=== PATIENT | female | born 1975 | race Caucasian/White ===

== ENCOUNTER 2017-03-16 03:26 | Emergency (ER) | payer OTHER ==
[2017-03-16] MEDS ORDERED: ONDANSETRON 4 MG/2 ML VIAL IVP STA (03:53)
[2017-03-16] MEDS ORDERED: PANTOPRAZOLE 40 MG/10 ML VIAL IVP STA (03:53)
[2017-03-16] MEDS ORDERED: SODIUM CHLORIDE 0.9% 1,000 ML IV STA ×2 (03:53)
[2017-03-16] MEDS ORDERED: SODIUM CHLORIDE 0.9% 500 ML IV STA (03:53)
[2017-03-16] MEDS ORDERED: MORPHINE SULFATE 4 MG/ML SYRINGE IVP STA (03:54)
[2017-03-16 04:13] LABS: Basophils % (A) 0 %; CH 31.9; CHCM 33.5; Eosinophils # (A) 0.2 k/uL (0-0.7); Eosinophils % (A) 2 %; HCT 42.5 % (34.0-46.0); HDW 2.23; HGB 14.6 gm/dL (11.4-16.0); Luc # (Auto) 0.25; Luc % (Auto) 2; Lymphocytes # (A) 1.8 k/uL (1.0-4.8); Lymphocytes % (A) 14 %; MCHC 34.4 g/dL (31.0-37.0); MCV 95.7 fL (80.0-100.0); Monocytes # (A) 0.8 k/uL (0-1.0); Monocytes % (A) 7 %; Neutrophils # (A) 9.6 k/uL (1.3-7.7); Neutrophils % (A) 75 %; RBC 4.44 m/uL (3.80-5.40); RDW 13.7 % (11.5-15.5); WBC 12.7 k/uL (3.8-10.6); WBC (Perox) 11.83
[2017-03-16 04:21] LABS: INR 1.1 (<1.1); Partial Thromboplastin Time 25.5 sec (22.0-30.0); Prothrombin Time 10.7 sec (9.0-12.0)
[2017-03-16 04:25] LABS: ALT 36 U/L (9-52); AST 17 U/L (14-36); Alkaline Phosphatase 86 U/L (38-126); Amylase 61 U/L (30-110); Anion Gap 14 mmol/L; Blood Urea Nitrogen 9 mg/dL (7-17); Calcium 10.1 mg/dL (8.4-10.2); Carbon Dioxide 27 mmol/L (22-30); Chloride 104 mmol/L (98-107); Glucose 132 mg/dL (74-99); Magnesium 1.9 mg/dL (1.6-2.3); Non-African American GFR(MDRD) >60 (>60 ml/min/1.73 sqM); Potassium 3.6 mmol/L (3.5-5.1); Sodium 145 mmol/L (137-145); Total Bilirubin 0.3 mg/dL (0.2-1.3); Total Protein 7.7 g/dL (6.3-8.2)
[2017-03-16] MEDS ORDERED: RX INFO: IV CONTRAST WAS GIVEN 1 EACH MISC MISCELLANE PRN (04:34)
[2017-03-16] MEDS ORDERED: LORazepam 2 MG/ML SYRINGE IV STA (04:34)
--- NOTE | 2017-03-16 04:35 | ED ---
General Adult HPI - General Source: patient, RN notes reviewed, old records reviewed Mode of arrival: ambulatory Limitations: no limitations <Antonio Bain - Last Filed: 03/16/17 06:47> <Blake Littlejohn - Last Filed: 03/16/17 07:43> - General Chief complaint: Nausea/Vomiting/Diarrhea Stated complaint: VOMITING BLOOD Time Seen by Provider: 03/16/17 03:53 - History of Present Illness Initial comments: This is a 41-year-old female here for evaluation of nausea and vomiting. Severe nausea vomiting signed today. Patient states she's never prior symptoms before. Denies history of pancreatitis. No surgeries. Patient does have history of L Kitty and ulcers. She states she no longer drinks, denies drugs or alcohol, no fevers. No diarrhea. Patient is [facility] to [facility] increased anxiety. She states that after multiple episodes of vomiting she denies blood in her vomit as well. She feels like she has pain in her throat, she does have recent history of throat surgery secondary to mass ( Antonio Bain) - Related Data Home Medications Medication Instructions Recorded Confirmed Famotidine 40 mg PO DAILY 07/20/14 03/16/17 Hydrocodone/Acetaminophen 1 tab PO BID 07/20/14 03/16/17 [Hydrocodone/Acetaminophen 10-325] Omeprazole 40 mg PO DAILY 07/20/14 03/16/17 Diazepam [Valium] 5 mg PO BID 03/16/17 03/16/17 QUEtiapine [SEROquel] 200 mg PO HS 03/16/17 03/16/17 Sucralfate [Carafate] 5 ml PO Q6H PRN 03/16/17 03/16/17 Previous Rx's Medication Instructions Recorded Ondansetron Odt [Zofran Odt] 4 mg PO Q8HR PRN #7 tab 03/16/17 Allergies Allergy/AdvReac Type Severity Reaction Status Date / Time No Known Allergies Allergy Verified 03/16/17 07:35 Review of Systems ROS Other: All systems not noted in ROS Statement are negative. <Antonio Bain - Last Filed: 03/16/17 06:47> ROS Other: All systems not noted in ROS Statement are negative. <Blake Littlejohn - Last Filed: 03/16/17 07:43> ROS Statement: Those systems with pertinent positive or pertinent negative responses have been documented in the HPI. Past Medical History Past Medical History: Unable to Obtain Additional Past Medical History / Comment(s): "precancerous polyps" removed from esophagus and stomach History of Any Multi-Drug Resistant Organisms: None Reported Past Surgical History: Orthopedic Surgery, Tonsillectomy, Tubal Ligation Additional Past Surgical History / Comment(s): "precancerous polyps" removed from esophagus and stomach, ruptured disk, Past Psychological History: Anxiety Smoking Status: Current every day smoker Past Alcohol Use History: Occasional Past Drug Use History: Marijuana <Antonio Bain - Last Filed: 03/16/17 06:47> General Exam Limitations: no limitations General appearance: alert, in no apparent distress, anxious Head exam: Present: atraumatic, normocephalic, normal inspection Eye exam: Present: normal appearance, PERRL, EOMI. Absent: scleral icterus, conjunctival injection, periorbital swelling ENT exam: Present: normal exam, mucous membranes moist Neck exam: Present: normal inspection. Absent: tenderness, meningismus, lymphadenopathy Respiratory exam: Present: normal lung sounds bilaterally. Absent: respiratory distress, wheezes, rales, rhonchi, stridor Cardiovascular Exam: Present: regular rate, normal rhythm, normal heart sounds. Absent: systolic murmur, diastolic murmur, rubs, gallop, clicks GI/Abdominal exam: Present: soft, normal bowel sounds. Absent: distended, tenderness, guarding, rebound, rigid Extremities exam: Present: normal inspection, full ROM, normal capillary refill. Absent: tenderness, pedal edema, joint swelling, calf tenderness Back exam: Present: normal inspection Neurological exam: Present: alert, oriented X3, CN II-XII intact Psychiatric exam: Present: normal affect, normal mood Skin exam: Present: warm, dry, intact, normal color. Absent: rash <Antonio Bain - Last Filed: 03/16/17 06:47> Course <Antonio Bain - Last Filed: 03/16/17 06:47> <Blake Littlejohn - Last Filed: 03/16/17 07:43> Vital Signs 03/16/17 03/16/17 03/16/17 03:29 05:46 06:03 Temperature 98.2 F 97.4 F L Pulse Rate 97 73 82 Respiratory 16 18 16 Rate Blood Pressure 176/106 122/71 154/87 O2 Sat by Pulse 97 94 L 99 Oximetry 03/16/17 07:18 Temperature Pulse Rate 79 Respiratory 18 Rate Blood Pressure 129/70 O2 Sat by Pulse 94 L Oximetry - Reevaluation(s) Reevaluation #1: 03/16/17 07:41 The patient was endorsed to me at our shift change pending CAT scan results. CT of the soft tissue neck showed prominence of the parotid glands. She has no symptoms at this level. Additionally the CT abdomen pelvis shows evidence of a right adnexal cyst no other findings I did discuss this with the patient and her family. Patient was complaining of a 4/10 migraine headache and some nausea she did get some more medication she'll be discharged and follow-up with her doctor and return when necessary (Blake Littlejohn) Medical Decision Making - Lab Data Result diagrams: 03/16/17 03:50 03/16/17 03:50 - Radiology Data Radiology results: report reviewed (CT soft tissue neck, CT head and pelvis negative for acute disease), image reviewed <Antonio Bain - Last Filed: 03/16/17 06:47> - Lab Data Result diagrams: 03/16/17 03:50 03/16/17 03:50 <Blake Littlejohn - Last Filed: 03/16/17 07:43> - Medical Decision Making 41 female in the ER for evaluation of anxiety nausea vomiting with blood. No vomiting while in emergency room, symptoms resolved. Anxiety improved CAT scans are normal patient can be discharged home (Antonio Bain) - Lab Data Lab Results 03/16/17 03/16/17 03/16/17 Range/Units 03:50 03:50 03:50 WBC 12.7 H (3.8-10.6) k/uL RBC 4.44 (3.80-5.40) m/uL Hgb 14.6 (11.4-16.0) gm/dL Hct 42.5 (34.0-46.0) % MCV 95.7 (80.0-100.0) fL MCH 33.0 (25.0-35.0) pg MCHC 34.4 (31.0-37.0) g/dL RDW 13.7 (11.5-15.5) % Plt Count 359 (150-450) k/uL Neutrophils % 75 % Lymphocytes % 14 % Monocytes % 7 % Eosinophils % 2 % Basophils % 0 % Neutrophils # 9.6 H (1.3-7.7) k/uL Lymphocytes # 1.8 (1.0-4.8) k/uL Monocytes # 0.8 (0-1.0) k/uL Eosinophils # 0.2 (0-0.7) k/uL Basophils # 0.0 (0-0.2) k/uL PT (9.0-12.0) sec INR (<1.1) APTT (22.0-30.0) sec Sodium 145 (137-145) mmol/L Potassium 3.6 (3.5-5.1) mmol/L Chloride 104 (98-107) mmol/L Carbon Dioxide 27 (22-30) mmol/L Anion Gap 14 mmol/L BUN 9 (7-17) mg/dL Creatinine 0.60 (0.52-1.04) mg/dL Est GFR (MDRD) Af Amer >60 (>60 ml/min/1.73 sqM) Est GFR (MDRD) Non-Af >60 (>60 ml/min/1.73 sqM) Glucose 132 H (74-99) mg/dL Calcium 10.1 (8.4-10.2) mg/dL Magnesium 1.9 (1.6-2.3) mg/dL Total Bilirubin 0.3 (0.2-1.3) mg/dL AST 17 (14-36) U/L ALT 36 (9-52) U/L Alkaline Phosphatase 86 (38-126) U/L Total Creatine Kinase 51 (30-135) U/L CK-MB (CK-2) 0.4 (0.0-2.4) ng/mL CK-MB (CK-2) Rel Index 0.8 Troponin I <0.012 (0.000-0.034) ng/mL Total Protein 7.7 (6.3-8.2) g/dL Albumin 4.8 (3.5-5.0) g/dL Amylase 61 (30-110) U/L Lipase 43 (23-300) U/L 03/16/17 Range/Units 03:50 WBC (3.8-10.6) k/uL RBC (3.80-5.40) m/uL Hgb (11.4-16.0) gm/dL Hct (34.0-46.0) % MCV (80.0-100.0) fL MCH (25.0-35.0) pg MCHC (31.0-37.0) g/dL RDW (11.5-15.5) % Plt Count (150-450) k/uL Neutrophils % % Lymphocytes % % Monocytes % % Eosinophils % % Basophils % % Neutrophils # (1.3-7.7) k/uL Lymphocytes # (1.0-4.8) k/uL Monocytes # (0-1.0) k/uL Eosinophils # (0-0.7) k/uL Basophils # (0-0.2) k/uL PT 10.7 (9.0-12.0) sec INR 1.1 (<1.1) APTT 25.5 (22.0-30.0) sec Sodium (137-145) mmol/L Potassium (3.5-5.1) mmol/L Chloride (98-107) mmol/L Carbon Dioxide (22-30) mmol/L Anion Gap mmol/L BUN (7-17) mg/dL Creatinine (0.52-1.04) mg/dL Est GFR (MDRD) Af Amer (>60 ml/min/1.73 sqM) Est GFR (MDRD) Non-Af (>60 ml/min/1.73 sqM) Glucose (74-99) mg/dL Calcium (8.4-10.2) mg/dL Magnesium (1.6-2.3) mg/dL Total Bilirubin (0.2-1.3) mg/dL AST (14-36) U/L ALT (9-52) U/L Alkaline Phosphatase (38-126) U/L Total Creatine Kinase (30-135) U/L CK-MB (CK-2) (0.0-2.4) ng/mL CK-MB (CK-2) Rel Index Troponin I (0.000-0.034) ng/mL Total Protein (6.3-8.2) g/dL Albumin (3.5-5.0) g/dL Amylase (30-110) U/L Lipase (23-300) U/L Disposition <Antonio Bain - Last Filed: 03/16/17 06:47> <Blake Littlejohn - Last Filed: 03/16/17 07:43> Clinical Impression: Nausea and vomiting, Zoë-Valdez tear Disposition: HOME SELF-CARE Condition: Good Instructions: Acute Nausea and Vomiting (ED) Prescriptions: Ondansetron Odt [Zofran Odt] 4 mg PO Q8HR PRN #7 tab PRN Reason: Nausea Referrals: Drik Richey MD [Primary Care Provider] - 1-2 days
[2017-03-16 04:42] LABS: Creatine Kinase 51 U/L (30-135)
[2017-03-16 04:55] LABS: Creatine Kinase MB 0.4 ng/mL (0.0-2.4); Troponin I <0.012 ng/mL (0.000-0.034)
--- NOTE | 2017-03-16 07:12 | CT ---
EXAM: CT Neck With Intravenous Contrast CLINICAL HISTORY: Reason: Pain TECHNIQUE: Axial computed tomography images of the neck with intravenous contrast. CTDI is 23.69 mGy and DLP is 785.05 mGy-cm. This CT exam was performed using one or more of the following dose reduction techniques: automated exposure control, adjustment of the mA and/or kV according to patient size, and/or use of iterative reconstruction technique. Coronal and sagittal reformatted images were created and reviewed. COMPARISON: None FINDINGS: Nasopharynx: Unremarkable. Oropharynx: Unremarkable. No significant tonsillar enlargement. No peritonsillar abscess. Hypopharynx: Unremarkable. Larynx: Unremarkable. Normal epiglottis. Trachea: Unremarkable. Retropharyngeal space: Unremarkable. Submandibular/parotid glands: Mildly enhancing parotid glands bilaterally, correlate for parotitis. Thyroid: Unremarkable. No enlarged or calcified nodules. Bones/joints: No acute fracture. Soft tissues: Unremarkable. Vasculature: No acute findings. Lymph nodes: Unremarkable. No lymphadenopathy. Lung apices: Unremarkable as visualized. Sinuses: Mild mucosal thickening is seen of the ethmoid air cells. IMPRESSION: Mildly enhancing parotid glands bilaterally, correlate for parotitis.
--- NOTE | 2017-03-16 07:16 | CT ---
EXAM: CT Abdomen and Pelvis With Intravenous Contrast CLINICAL HISTORY: Reason: Pain TECHNIQUE: Axial computed tomography images of the abdomen and pelvis with intravenous contrast. DLP is 2372 mGy-cm. This CT exam was performed using one or more of the following dose reduction techniques: automated exposure control, adjustment of the mA and/or kV according to patient size, and/or use of iterative reconstruction technique. Coronal and sagittal reformatted images were created and reviewed. Axial delayed images were obtained and reviewed. COMPARISON: No relevant prior studies available. FINDINGS: Lower thorax: Hiatal hernia is noted. ABDOMEN: Liver: Fatty infiltration Gallbladder and bile ducts: Unremarkable. No calcified stones. No ductal dilation. Pancreas: Unremarkable. No mass. No ductal dilation. Spleen: Unremarkable. No splenomegaly. Adrenals: Unremarkable. No mass. Kidneys and ureters: No solid mass. No hydronephrosis. A few small hypodensities, too small to characterize but may represent cysts. Stomach and bowel: Unremarkable. No obstruction. No mucosal thickening. Appendix: No findings to suggest acute appendicitis. PELVIS: Bladder: Unremarkable. No mass. Reproductive: Complex cyst right adnexa measuring 2.3 cm x 2.3 cm. ABDOMEN and PELVIS: Intraperitoneal space: Unremarkable. No free air. No significant fluid collection. Bones/joints: Schmorl's nodes seen of L2 and L3 with evidence of limbus vertebra of L2. No acute fracture. No dislocation. Soft tissues: Periumbilical hernia containing only mesenteric fat Vasculature: Mild calcification of the abdominal aorta No abdominal aortic aneurysm. Fatty infiltration of liver. Lymph nodes: Unremarkable. No enlarged lymph nodes. IMPRESSION: 1. No evidence of bowel obstruction 2. Fatty infiltration of the liver. 3. Complex 2.3-cm cyst in the right adnexa. This may represent prominent follicles versus a larger septated cystic lesion. Further evaluation with ultrasound may performed if clinically indicated.
[2017-03-16 07:19] VITALS: RESP 18
[2017-03-16] MEDS ORDERED: METOCLOPRAMIDE 5 MG/ML 2 ML VIAL IVP STA (07:32)
[2017-03-16] MEDS ORDERED: KETOROLAC 30 MG/ML 1 ML VIAL IVP STA (07:32)
[2017-03-16 08:05] VITALS: BP 128/71; PULSE 78; TEMP 98.4
== END 2017-03-16 08:05 | disposition home or self-care (01) ==
LOC: EC 03:26
DX: K22.6 Gastro-esophageal laceration-hemorrhage syndrome (principal); R11.2 Nausea with vomiting, unspecified; F41.9 Anxiety disorder, unspecified; F17.200 Nicotine dependence, unspecified, uncomplicated; Z79.891 Long term (current) use of opiate analgesic; Z79.899 Other long term (current) drug therapy
CPT/HCPCS: 99284; 96374; 96375 ×5; 96361 ×3; 36415; 80053; 82150; 82550; 82553; 83690; 83735; 84484; 85025; 85610; 85730; 70491; 74177; J2060; J2270; J2765; J2405; J1885; Q9967; C9113

== ENCOUNTER 2018-05-10 10:06 | Day surgery (SDC) | payer OTHER ==
[2018-05-04 10:28] VITALS: BMI 29.1
[~2018-05-10 10:06] MED LIST: LACTATED RINGERS 1,000 ML IV SCH; LIDOCAINE 1% 20 ML VIAL (10MG/ML) FOR IV START INTRADERMA PRN
[2018-05-10 10:36] VITALS: TEMP 97.3
[2018-05-10] MEDS ORDERED: MIDAZOLAM 2 MG/2 ML VIAL ONE (11:09)
[2018-05-10] MEDS ORDERED: ONDANSETRON 4 MG/2 ML VIAL ONE (11:09)
[2018-05-10] MEDS ORDERED: LIDOCAINE 1% INJ 10MG/ML (20 ML MDV) ONE (11:09)
[2018-05-10] MEDS ORDERED: fentaNYL (PF) 50 MCG/ML 2 ML AMP ONE (11:09)
[2018-05-10] MEDS ORDERED: PROPOFOL 10 MG/ML 20 ML VIAL IV ONE (11:09)
--- NOTE | 2018-05-10 11:43 | P.PCN ---
Date of Procedure: 05/10/18 Procedure(s) Performed: Procedure: Esophagogastroduodenoscopy and biopsy. Preoperative diagnosis: Chronic reflux symptoms. Postoperative diagnosis: 1. Sliding hiatal hernia with short segment of Silverman' s esophagus. 2. Mild antral gastritis. 3. Multiple biopsies obtained from the duodenum, antrum and esophagus both proximal and distal to the emery-GE junction. Preparation and sedation: Was provided by anesthesia. Brief clinical history: The patient is a 42-year-old female who had chronic reflux symptoms for which she received PPI and H2 ely therapy over the years. 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 She had an upper endoscopy more than 10 years ago. She had vocal polyps removed around 2 & 1/2 years ago. No other alarm symptoms. Apparently, she had an episode of vomiting and she saw some blood around 10 days ago, no black stools. Procedure: With the patient on her left lateral decubitus position and after informed consent and adequate sedation, I passed the Olympus-GIF 160 video upper endoscope through the cricopharyngeus down the esophagus. The emery-GE junction was irregular and started around 31 cm from the incisors and the tubular esophagus continued for another 3-4 cm defining a segment of Silverman's esophagus. There was a sliding hiatal hernia which measured around 2 cm then the endoscope was advanced into the stomach which was insufflated with air and inspected in detail including the retroflex view in the cardia. There was some mottling and erythema in the antrum but no ulcers or erosions. Pyloric channel , duodenal bulb, post bulbar area and descending duodenum appeared within normal limits. Because of her symptoms, I obtained biopsies from the duodenum, antrum as well as from the esophagus both proximal and distal to the emery-GE junction. The patient tolerated the procedure well. Plan: The patient was reassured. Will await biopsy results. Discussed dietary measures and antireflux measures. She will continue with acid suppressive therapy as well and I anticipate repeating her upper endoscopy in 2-3 years depending on the biopsy results. She will follow-up with you as planned.
[2018-05-10 11:56] VITALS: PULSE 77; RESP 18
[2018-05-10] MEDS ORDERED: FAMOTIDINE 20 MG/2 ML VIAL IVP ONE (12:02)
[2018-05-10 12:24] VITALS: BP 130/80
== END 2018-05-10 12:41 | disposition home or self-care (01) ==
LOC: ORWHC2ENDO 10:06
DX: K22.70 Barrett's esophagus without dysplasia (principal); K29.70 Gastritis, unspecified, without bleeding; K21.0 Gastro-esophageal reflux disease with esophagitis; K44.9 Diaphragmatic hernia without obstruction or gangrene; Z79.899 Other long term (current) drug therapy; J44.9 Chronic obstructive pulmonary disease, unspecified; Z98.51 Tubal ligation status
CPT/HCPCS: 81025; 88305; 43239; J2250; J2405; J2001; J3010; J2704

== ENCOUNTER 2018-06-20 14:48 | Emergency (ER) | payer OTHER ==
[2018-06-20] MEDS ORDERED: SODIUM CHLORIDE 0.9% 500 ML 500 ML IV STA (14:52)
--- NOTE | 2018-06-20 14:55 | ED ---
General Adult HPI - General Stated complaint: SVT Time Seen by Provider: 06/20/18 14:49 Source: RN notes reviewed - History of Present Illness Initial comments: This a 43-year-old female who presents emergency Department complaining of fast heart rate and a little pressure in the center of her chest. When EMS arrived they stated she was in SVT at about 180 beats a minute. EMS administered adenosine 6 mg and converted her back to normal sinus rhythm. Patient states her symptoms completely resolved at the medication and she feels back to her baseline. Patient denies any recent fever or chills. Patient denies any drug abuse. Patient denies any [id number] Sudafed. Patient denies any alcohol abuse. Patient denies any increased caffeine. Patient states she felt a little short of breath when she was having the fast heart rate but currently does not have any shortness of breath. Patient states she's had this for 5 times in the past but always resolves on its own. Patient denies recently being sick or ill in any way. Patient has no symptoms currently - Related Data Home Medications Medication Instructions Recorded Confirmed Famotidine 40 mg PO DAILY 07/20/14 05/04/18 Omeprazole 40 mg PO DAILY 07/20/14 05/04/18 Diazepam [Valium] 5 mg PO BID 03/16/17 05/04/18 QUEtiapine [SEROquel] 200 mg PO HS 03/16/17 05/04/18 Buprenorphine HCl/Naloxone HCl 8 mg PO BID 05/04/18 05/04/18 [Suboxone 8 mg-2 mg Sl Film] Allergies Allergy/AdvReac Type Severity Reaction Status Date / Time No Known Allergies Allergy Verified 05/10/18 10:29 Review of Systems ROS Statement: Those systems with pertinent positive or pertinent negative responses have been documented in the HPI. ROS Other: All systems not noted in ROS Statement are negative. Past Medical History Past Medical History: GERD/Reflux Additional Past Medical History / Comment(s): "precancerous polyps" removed from esophagus and stomach History of Any Multi-Drug Resistant Organisms: None Reported Past Surgical History: Back Surgery, Tonsillectomy, Tubal Ligation Additional Past Surgical History / Comment(s): "precancerous polyps" removed from esophagus and stomach x2, ruptured disk sx, EGD Past Anesthesia/Blood Transfusion Reactions: No Reported Reaction Smoking Status: Current every day smoker - Past Family History Mother Family Medical History: Cancer General Exam - General Exam Comments Initial Comments: GENERAL: Patient is well-developed and well-nourished. Patient is nontoxic and well- hydrated and is in mild distress. ENT: Neck is soft and supple. No significant lymphadenopathy is noted. Oropharynx is clear. Moist mucous membranes. Neck has full range of motion without eliciting any pain. EYES: The sclera were anicteric and conjunctiva were pink and moist. Extraocular movements were intact and pupils were equal round and reactive to light. Eyelids were unremarkable. PULMONARY: Unlabored respirations. Good breath sounds bilaterally. No audible rales rhonchi or wheezing was noted. CARDIOVASCULAR: There is a regular rate and rhythm without any murmurs gallops or rubs. ABDOMEN: Soft and nontender with normal bowel sounds. No palpable organomegaly was noted. There is no palpable pulsatile mass. SKIN: Skin is clear with no lesions or rashes and otherwise unremarkable. NEUROLOGIC: Patient is alert and oriented x3. Cranial nerves II through XII are grossly intact. Motor and sensory are also intact. Normal speech, volume and content. Symmetrical smile. MUSCULOSKELETAL: Normal extremities with adequate strength and full range of motion. No lower extremity swelling or edema. No calf tenderness. LYMPHATICS: No significant lymphadenopathy is noted PSYCHIATRIC: Normal psychiatric evaluation. Course Vital Signs 06/20/18 15:17 Temperature 98.2 F Pulse Rate 92 Respiratory 16 Rate Blood Pressure 150/90 O2 Sat by Pulse 96 Oximetry Medical Decision Making - Medical Decision Making I saw the rhythm strip that showed that the patient was in SVT at 180 beats a minute EKG shows normal sinus rhythm at 92 bpm CA interval 166 dresses 80 QT interval 360 QTC is 455. Patient's EKG shows no ST segment elevation no ST segment depression. There are no T-wave abnormalities noted. X-ray showed no acute normalities. New. Patient remained asymptomatic throughout her ED course. Chest x-ray shows no acute abnormality. - Lab Data Result diagrams: 06/20/18 15:05 06/20/18 15:05 Lab Results 06/20/18 06/20/18 06/20/18 Range/Units 15:05 15:05 15:05 WBC 7.9 (3.8-10.6) k/uL RBC 4.20 (3.80-5.40) m/uL Hgb 13.3 (11.4-16.0) gm/dL Hct 41.7 (34.0-46.0) % MCV 99.2 (80.0-100.0) fL MCH 31.6 (25.0-35.0) pg MCHC 31.8 (31.0-37.0) g/dL RDW 13.6 (11.5-15.5) % Plt Count 202 (150-450) k/uL Neutrophils % 63 % Lymphocytes % 26 % Monocytes % 6 % Eosinophils % 3 % Basophils % 0 % Neutrophils # 5.0 (1.3-7.7) k/uL Lymphocytes # 2.0 (1.0-4.8) k/uL Monocytes # 0.5 (0-1.0) k/uL Eosinophils # 0.2 (0-0.7) k/uL Basophils # 0.0 (0-0.2) k/uL Hypochromasia Slight PT (9.0-12.0) sec INR (<1.2) APTT (22.0-30.0) sec Sodium 140 (137-145) mmol/L Potassium 4.5 (3.5-5.1) mmol/L Chloride 109 H (98-107) mmol/L Carbon Dioxide 24 (22-30) mmol/L Anion Gap 7 mmol/L BUN 9 (7-17) mg/dL Creatinine 0.62 (0.52-1.04) mg/dL Est GFR (CKD-EPI)AfAm >90 (>60 ml/min/1.73 sqM) Est GFR (CKD-EPI)NonAf >90 (>60 ml/min/1.73 sqM) Glucose 82 (74-99) mg/dL Calcium 8.9 (8.4-10.2) mg/dL Magnesium 1.7 (1.6-2.3) mg/dL Total Bilirubin 0.7 (0.2-1.3) mg/dL AST 33 (14-36) U/L ALT 15 (9-52) U/L Alkaline Phosphatase 68 (38-126) U/L Total Creatine Kinase 66 (30-135) U/L CK-MB (CK-2) 0.4 (0.0-2.4) ng/mL CK-MB (CK-2) Rel Index 0.6 Troponin I 0.019 (0.000-0.034) ng/mL Total Protein 7.4 (6.3-8.2) g/dL Albumin 4.1 (3.5-5.0) g/dL Free T4 0.74 L (0.78-2.19) ng/dL 06/20/18 Range/Units 15:05 WBC (3.8-10.6) k/uL RBC (3.80-5.40) m/uL Hgb (11.4-16.0) gm/dL Hct (34.0-46.0) % MCV (80.0-100.0) fL MCH (25.0-35.0) pg MCHC (31.0-37.0) g/dL RDW (11.5-15.5) % Plt Count (150-450) k/uL Neutrophils % % Lymphocytes % % Monocytes % % Eosinophils % % Basophils % % Neutrophils # (1.3-7.7) k/uL Lymphocytes # (1.0-4.8) k/uL Monocytes # (0-1.0) k/uL Eosinophils # (0-0.7) k/uL Basophils # (0-0.2) k/uL Hypochromasia PT 9.9 (9.0-12.0) sec INR 1.0 (<1.2) APTT 23.0 (22.0-30.0) sec Sodium (137-145) mmol/L Potassium (3.5-5.1) mmol/L Chloride (98-107) mmol/L Carbon Dioxide (22-30) mmol/L Anion Gap mmol/L BUN (7-17) mg/dL Creatinine (0.52-1.04) mg/dL Est GFR (CKD-EPI)AfAm (>60 ml/min/1.73 sqM) Est GFR (CKD-EPI)NonAf (>60 ml/min/1.73 sqM) Glucose (74-99) mg/dL Calcium (8.4-10.2) mg/dL Magnesium (1.6-2.3) mg/dL Total Bilirubin (0.2-1.3) mg/dL AST (14-36) U/L ALT (9-52) U/L Alkaline Phosphatase (38-126) U/L Total Creatine Kinase (30-135) U/L CK-MB (CK-2) (0.0-2.4) ng/mL CK-MB (CK-2) Rel Index Troponin I (0.000-0.034) ng/mL Total Protein (6.3-8.2) g/dL Albumin (3.5-5.0) g/dL Free T4 (0.78-2.19) ng/dL Disposition Clinical Impression: Supraventricular tachycardia Disposition: HOME SELF-CARE Condition: Good Instructions: Supraventricular Tachycardia (ED) Additional Instructions: Patient should follow up with cardiology. Is patient prescribed a controlled substance at d/c from ED?: No Referrals: Baldemar Krishnan MD [STAFF PHYSICIAN] - 1-2 days Time of Disposition: 16:31
[2018-06-20 15:21] VITALS: TEMP 98.2
--- NOTE | 2018-06-20 15:40 | XR ---
EXAMINATION TYPE: XR chest 2V DATE OF EXAM: 06/20/2018 COMPARISON: Chest x-ray July 19, 2014. HISTORY: Dysrhythmia per order. TECHNIQUE: Frontal and lateral views of the chest are obtained. FINDINGS: There is new left basilar linear atelectasis. Right lung is clear. No pleural effusion or pneumothorax is seen bilaterally. Overlying EKG leads are seen. The cardiac silhouette size is stable and within normal limits. The osseous structures are intact. IMPRESSION: New left basilar linear atelectasis.
[2018-06-20 15:47] LABS: Basophils % (A) 0 %; Eosinophils # (A) 0.2 k/uL (0-0.7); Eosinophils % (A) 3 %; HCT 41.7 % (34.0-46.0); HGB 13.3 gm/dL (11.4-16.0); Hypochromasia Slight; Lymphocytes % (A) 26 %; MCH 31.6 pg (25.0-35.0); MCHC 31.8 g/dL (31.0-37.0); MCV 99.2 fL (80.0-100.0); Mean Platelet Volume 8.4; Monocytes # (A) 0.5 k/uL (0-1.0); Monocytes % (A) 6 %; Neutrophils % (A) 63 %; Platelet Count 202 k/uL (150-450); RDW 13.6 % (11.5-15.5); WBC 7.9 k/uL (3.8-10.6)
[2018-06-20 16:02] LABS: ALT 15 U/L (9-52); AST 33 U/L (14-36); Albumin 4.1 g/dL (3.5-5.0); Alkaline Phosphatase 68 U/L (38-126); Anion Gap 7 mmol/L; Blood Urea Nitrogen 9 mg/dL (7-17); Calcium 8.9 mg/dL (8.4-10.2); Carbon Dioxide 24 mmol/L (22-30); Chloride 109 mmol/L (98-107); Glucose 82 mg/dL (74-99); Magnesium 1.7 mg/dL (1.6-2.3); Sodium 140 mmol/L (137-145); Total Bilirubin 0.7 mg/dL (0.2-1.3); Total Protein 7.4 g/dL (6.3-8.2)
[2018-06-20 16:10] LABS: Potassium 4.5 mmol/L (3.5-5.1); Prothrombin Time 9.9 sec (9.0-12.0)
[2018-06-20 16:17] LABS: T4, Free (Free Thyroxine) 0.74 ng/dL (0.78-2.19)
[2018-06-20 16:20] LABS: Creatine Kinase MB 0.4 ng/mL (0.0-2.4); Troponin I 0.019 ng/mL (0.000-0.034)
[2018-06-20] MEDS ORDERED: LORazepam 2 MG/ML INJ IV STA (16:30)
[2018-06-20 16:39] VITALS: BP 147/90; PULSE 88; RESP 18
[2018-06-20 16:47] LABS: Amphetamine Screen,Urine Not Detected (NotDetected); Barbiturate Screen,Urine Not Detected (NotDetected); Benzodiazepines Screen,Urine Detected (NotDetected); Cocaine Screen,Urine Not Detected (NotDetected); Methadone Screen, Urine Not Detected (NotDetected); Opiate Screen,Urine Not Detected (NotDetected); Oxycodone Screen, Urine Not Detected (NotDetected); Phencyclidine Screen,Urine Not Detected (NotDetected); Tricyclic Antidepressant,Urine Not Detected (NotDetected); Urn Cannabinoid Scrn Detected (NotDetected)
== END 2018-06-20 16:40 | disposition home or self-care (01) ==
LOC: EC 14:48
DX: I47.1 Supraventricular tachycardia (principal); K21.9 Gastro-esophageal reflux disease without esophagitis; F17.200 Nicotine dependence, unspecified, uncomplicated; Z86.010 Personal history of colon polyps; Z98.51 Tubal ligation status; Z98.890 Other specified postprocedural states; Z79.899 Other long term (current) drug therapy
CPT/HCPCS: 36415; 93005; 84439; 80053; 82550; 82553; 83735; 84443; 84484; 85025; 85610; 85730; 80306; 71046; 99285; 96374; 96361; J2060

== ENCOUNTER → 2021-07-15 | Outpatient (CLI) | payer BC ==
--- NOTE | 2021-07-15 14:56 | CT ---
EXAMINATION TYPE: CT abdomen w con DATE OF EXAM: 07/15/2021 COMPARISON: 03/16/2017 HISTORY: 46-year-old female R10.13, epigastric pain, Upper Abdominal pain with lump at lower sternal region TECHNIQUE: Contiguous axial scanning of the abdomen following administration of 100 ml Isovue 300 IV contrast. Delayed images through the kidneys and coronal/sagittal reconstructions performed. CT DLP: 928.2 mGycm Automated exposure control for dose reduction was used. FINDINGS: Heart normal size without pericardial effusion. Mild emphysematous change in the visualized lower vikki gs with some strandy areas of scarring or atelectasis. No pleural effusion. Small hiatal hernia. Adjacent lower left paraesophageal lymph node measuring 1.0 cm is unchanged. Liver mildly enlarged at 18.7 cm. Small amount of focal fat along the anterior falciform ligament. Po rtal venous system is patent. No biliary ductal dilatation. Gallbladder, adrenal glands, kidneys, and pancreas within normal limits. Spleen upper limits of normal in size at 13.2 cm measured on axial series. No dilated small bowel, free fluid, or free air. Prominent portacaval lymph node at 1.1 cm and aortocaval lymph node at 7 mm. A couple prominent gastr ohepatic ligament lymph nodes measuring up to 7 mm. Likely reactive/post inflammatory. Otherwise, no mesenteric or retroperitoneal lymphadenopathy. No dilated small bowel, free fluid, or free air. Normal appendix. Oral contrast has just crossed the ileocecal valve region. There is appearance of mi ld circumferential wall thickening extending from the hepatic flexure of the colon to the lower desce nding colon and then possibly at the distal sigmoid colon as well. Findings may relate to underdisten tion. No pericolonic inflammatory change. Partially visualized anteverted uterus. Partially visualized bladder dome and ovaries. Pelvis otherwise not imaged. Bones: L2 limbus vertebra. Degenerative disc disease. IMPRESSION: 1. A FEW SCATTERED BORDERLINE SIZED LYMPH NODES SUCH IN THE LOWER PARAESOPHAGEAL, GASTROHEPATIC LI GAMENT, PORTACAVAL, AND AORTOCAVAL REGIONS REMAIN UNCHANGED BACK TO 2017 SUGGESTING CHRONIC REACTIVE/ POST INFLAMMATORY ETIOLOGY. 2. MILD CIRCUMFERENTIAL COLONIC WALL THICKENING EXTENDING FROM THE HEPATIC FLEXURE TO THE LOWER DESCE NDING COLON COULD RELATE TO A NONSPECIFIC MILD INFECTIOUS OR INFLAMMATORY COLITIS VERSUS UNDER DISTEN TION. CLINICALLY CORRELATE. 3. MILD EMPHYSEMA, SMALL HIATAL HERNIA, MILD HEPATOMEGALY (18.7 CM).
== END | disposition home or self-care (01) ==
LOC: RADCTMAIN 12:41
PROVIDERS: ATTEND Family Medicine
DX: R16.0 Hepatomegaly, not elsewhere classified (principal); K63.89 Other specified diseases of intestine; K44.9 Diaphragmatic hernia without obstruction or gangrene; J43.9 Emphysema, unspecified
CPT/HCPCS: 74160; Q9967

== ENCOUNTER → 2022-05-30 | Outpatient (CLI) | payer BC ==
--- NOTE | 2022-05-30 09:14 | CT ---
EXAMINATION TYPE: CT soft tissue neck w con DATE OF EXAM: 05/30/2022 COMPARISON: 03/16/2017 HISTORY: Laryngeal mass, hoarseness, polyps, Barretts esophagus CT DLP: 712 mGycm CONTRAST: CT scan of the neck is performed with IV Contrast, patient injected with 100 mL of Isovue 300. Contrast enhanced CT of the neck was performed from the skull base through the lung apices. AIRWAY: Soft tissue fullness at the base of the tongue on the right. Correlate with direct visualizat ion to exclude mass. The remaining airway fails demonstrate evidence for additional mass or obvious p olyp. SALIVARY GLANDS: The submandibular and parotid glands are free of mass or inflammatory process. THYROID GLAND: No nodules or masses seen. LYMPH NODES: No adenopathy seen greater than 1cm. LUNG APICES: No nodule or mass is seen. OTHER: Vascular structures are patent. Mild degenerative change of the cervical spine. No abscess s een. Mild chronic ethmoidal sinusitis. IMPRESSION: Soft tissue fullness at the base of the tongue on the right. Correlate with direct visualization to e xclude mass.
== END | disposition home or self-care (01) ==
LOC: RADCTMAIN 08:35
PROVIDERS: ATTEND Otolaryngology
DX: R22.0 Localized swelling, mass and lump, head (principal); R49.0 Dysphonia
CPT/HCPCS: 70491; Q9967

== ENCOUNTER 2023-03-11 13:51 | Emergency (ER) | payer BC ==
[2023-03-11 15:42] LABS: Basophils % (A) 0 %; Eosinophils # (A) 0.5 k/uL (0-0.7); Eosinophils % (A) 7 %; HCT 45.5 % (34.0-46.0); HGB 14.4 gm/dL (11.4-16.0); Lymphocytes # (A) 2.2 k/uL (1.0-4.8); Lymphocytes % (A) 30 %; MCH 31.2 pg (25.0-35.0); MCHC 31.6 g/dL (31.0-37.0); MCV 98.7 fL (80.0-100.0); Mean Platelet Volume 7.7; Monocytes # (A) 0.4 k/uL (0-1.0); Monocytes % (A) 6 %; Neutrophils # (A) 4.1 k/uL (1.3-7.7); Neutrophils % (A) 55 %; Platelet Count 254 k/uL (150-450); RDW 13.5 % (11.5-15.5); WBC 7.5 k/uL (3.8-10.6)
[2023-03-11 15:52] LABS: INR 0.9 (<1.2); Partial Thromboplastin Time 28.2 sec (22.0-30.0); Prothrombin Time 9.5 sec (9.0-12.0)
[2023-03-11 15:59] LABS: ALT 19 U/L (4-34); AST 21 U/L (14-36); African American GFR (CKD) >90 (>60 ml/min/1.73 sqM); Albumin 4.1 g/dL (3.5-5.0); Alkaline Phosphatase 84 U/L (38-126); Anion Gap 7 mmol/L; Blood Urea Nitrogen 11 mg/dL (7-17); Calcium 9.2 mg/dL (8.4-10.2); Carbon Dioxide 27 mmol/L (22-30); Chloride 103 mmol/L (98-107); Glucose 87 mg/dL (74-99); Non-African American GFR(CKD) >90 (>60 ml/min/1.73 sqM); Potassium 4.7 mmol/L (3.5-5.1); Sodium 137 mmol/L (137-145); Total Bilirubin 0.3 mg/dL (0.2-1.3); Total Protein 7.3 g/dL (6.3-8.2)
--- NOTE | 2023-03-11 17:02 | ED ---
Female Urogenital HPI - General Chief complaint: Vaginal Bleeding Stated complaint: vaginal bleeding Source: patient Mode of arrival: ambulatory Limitations: no limitations - History of Present Illness Initial comments: 47 year old postmenopausal female for 2 years presents to the ED with a chief complaint of vaginal bleeding. Patient states approximately a week ago started to experience a lower back ache which progressed to abdominal cramps feeling similar to menstrual cramping. The past 4 days she notes that she has had heavy vaginal bleeding. Additionally notes that she has had urinary frequency for approximately week. Denies dysuria. Notes ongoing issues with constipation. Last bowel movement this morning. Chest pain or shortness of breath. No other complaints. - Related Data Home Medications Medication Instructions Recorded Confirmed Famotidine 40 mg PO HS 07/20/14 06/12/22 QUEtiapine [SEROquel] 200 mg PO HS 03/16/17 06/12/22 Albuterol Inhaler [Ventolin Hfa 2 puff INHALATION Q6H PRN 06/10/22 06/12/22 Inhaler] Albuterol Nebulizer(Dose Unknw 1 applicate IH DIRECTED PRN 06/10/22 06/12/22 Ibuprofen [Motrin Ib] 200 mg PO Q8H PRN 06/10/22 06/12/22 Omeprazole [PriLOSEC] 40 mg PO HS 06/10/22 06/12/22 Sucralfate [Carafate] 1 gm PO DIRECTED PRN 06/10/22 06/12/22 Allergies Allergy/AdvReac Type Severity Reaction Status Date / Time No Known Allergies Allergy Verified 03/11/23 14:13 Review of Systems ROS Statement: Those systems with pertinent positive or pertinent negative responses have been documented in the HPI. ROS Other: All systems not noted in ROS Statement are negative. 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 History of Any Multi-Drug Resistant Organisms: None Reported Past Surgical History: Back Surgery, Orthopedic Surgery, Tonsillectomy, Tubal Ligation Additional Past Surgical History / Comment(s): "precancerous polyps" removed from esophagus and stomach x2, back surgery for ruptured disk sx, EGD, rt ring ringer tendon repaired Past Anesthesia/Blood Transfusion Reactions: No Reported Reaction Past Psychological History: Anxiety Smoking Status: Current every day smoker Past Alcohol Use History: None Reported Past Drug Use History: Marijuana - Past Family History Mother Family Medical History: Cancer Additional Family Medical History / Comment(s): breast Sister(s) Family Medical History: Deep Vein Thrombosis (DVT), Pulmonary Embolus General Exam Limitations: no limitations General appearance: alert Head exam: Present: atraumatic, normocephalic Eye exam: Present: normal appearance Respiratory exam: Present: normal lung sounds bilaterally Cardiovascular Exam: Present: regular rate, normal rhythm GI/Abdominal exam: Present: soft, tenderness (Diffuse abdominal tenderness to palpation worse in the lower quadrants.), normal bowel sounds Neurological exam: Present: alert, oriented X3 Psychiatric exam: Present: normal affect, normal mood Skin exam: Present: warm, dry Course Vital Signs 03/11/23 03/11/23 14:08 17:51 Temperature 98.0 F 98 F Pulse Rate 84 81 Respiratory 20 16 Rate Blood Pressure 150/85 134/74 O2 Sat by Pulse 96 96 Oximetry Medical Decision Making - Medical Decision Making Was pt. sent in by a medical professional or institution (, PA, TOLL COLLECTOR SUPERVISOR, urgent care, hospital, or snf...) When possible be specific @ -No Did you speak to anyone other than the patient for history (EMS, parent, family, police, friend...)? What history was obtained from this source @ -No Did you review nursing and triage notes (agree or disagree)? Why? @ -I reviewed and agree with nursing and triage notes Were old charts reviewed (outside hosp., previous admission, EMS record, old EKG, old radiological studies, urgent care reports/EKG's, snf records)? Report findings @ -No old charts were reviewed Differential Diagnosis (chest pain, altered mental status, abdominal pain women, abdominal pain men, vaginal bleeding, weakness, fever, dyspnea, syncope, h eadache, dizziness, GI bleed, back pain, seizure, CVA, palpatations, mental health, musculoskeletal)? @ -Differential Abdominal Pain Women: Appendicitis, Cholecystitis, diverticulosis, ischemic bowel, pancreatitis, hepatitis, UTI, gastroenteritis, AAA, incarcerated hernia, bowel obstruction, constipation, inflammatory bowel, hepatitis, peptic ulcer disease, splenic infarction, perforated viscus, vulvitis, ovarian torsion, PID, kidney stone, placenta abruption, this is not meant to be an all-inclusive list EKG interpreted by me (3pts min.). @ -None X-rays interpreted by me (1pt min.). @ -None done CT interpreted by me (1pt min.). @ -None done U/S interpreted by me (1pt. min.). @ -Transvaginal ultrasound showed a multi-fibroid uterus without evidence of acute findings. Additionally endometrial stripe upper limits of normal at 5 mm. What testing was considered but not performed or refused? (CT, X-rays, U/S, labs)? Why? @ -None What meds were considered but not given or refused? Why? @ -None Did you discuss the management of the patient with other professionals (professionals i.e. , PA, TOLL COLLECTOR SUPERVISOR, lab, RT, psych nurse, director of social media marketing, cardiovascular radiologic technologist, teacher, corporate development officer, shelter case manager)? Give summary @ -No Was smoking cessation discussed for >3mins.? @ -No Was critical care preformed (if so, how long)? @ -No Were there social determinants of health that impacted care today? How? (Homelessness, low income, unemployed, alcoholism, drug addiction, transportation, low edu. Level, literacy, decrease access to med. care, residential, rehab)? @ -No Was there de-escalation of care discussed even if they declined (Discuss DNR or withdrawal of care, Hospice)? DNR status @ -No What co-morbidities impacted this encounter? (DM, HTN, Smoking, COPD, CAD, Cancer, CVA, ARF, Chemo, Hep., AIDS, mental health diagnosis, sleep apnea, morbid obesity)? @ -None Was patient admitted / discharged? Hospital course, mention meds given and route, prescriptions, significant lab abnormalities, going to OR and other pertinent info. @ -Discharged. Transvaginal ultrasound showed uterine fibroids and qu estionable thickened endometrial stripe. Labs here including CBC, CMP, and UA unremarkable. Patient noted a drastic improvement of pain with 15 mg Toradol IM. Patient discharged home with starter pack of ibuprofen and additional prescription for ibuprofen. Patient called Dr. Ribera's office who stated that they will see the patient within the next few days. Discussed return precautions with patient who verbalizes agreement. Undiagnosed new problem with uncertain prognosis? @ -No Drug Therapy requiring intensive monitoring for toxicity (Heparin, Nitro, Insulin, Cardizem)? @ -No Were any procedures done? @ -No Diagnosis/symptom? @ -Fibroids Acute, or Chronic, or Acute on Chronic? @ -Acute Uncomplicated (without systemic symptoms) or Complicated (systemic symptoms)? @ -Uncomplicated Side effects of treatment? @ -No Exacerbation, Progression, or Severe Exacerbation? @ -No Poses a threat to life or bodily function? How? (Chest pain, USA, HI, pneumonia, PE, COPD, DKA, ARF, appy, cholecystitis, CVA, Diverticulitis, Homicidal, Suicidal, threat to staff... and all critical care pts) @ -No - Lab Data Result diagrams: 03/11/23 15:27 03/11/23 15:27 Lab Results 03/11/23 03/11/23 03/11/23 Range/Units 15:27 15:27 15:27 WBC 7.5 (3.8-10.6) k/uL RBC 4.60 (3.80-5.40) m/uL Hgb 14.4 (11.4-16.0) gm/dL Hct 45.5 (34.0-46.0) % MCV 98.7 (80.0-100.0) fL MCH 31.2 (25.0-35.0) pg MCHC 31.6 (31.0-37.0) g/dL RDW 13.5 (11.5-15.5) % Plt Count 254 (150-450) k/uL MPV 7.7 Neutrophils % 55 % Lymphocytes % 30 % Monocytes % 6 % Eosinophils % 7 % Basophils % 0 % Neutrophils # 4.1 (1.3-7.7) k/uL Lymphocytes # 2.2 (1.0-4.8) k/uL Monocytes # 0.4 (0-1.0) k/uL Eosinophils # 0.5 (0-0.7) k/uL Basophils # 0.0 (0-0.2) k/uL PT 9.5 (9.0-12.0) sec INR 0.9 (<1.2) APTT 28.2 (22.0-30.0) sec Sodium 137 (137-145) mmol/L Potassium 4.7 (3.5-5.1) mmol/L Chloride 103 (98-107) mmol/L Carbon Dioxide 27 (22-30) mmol/L Anion Gap 7 mmol/L BUN 11 (7-17) mg/dL Creatinine 0.52 (0.52-1.04) mg/dL Est GFR (CKD-EPI)AfAm >90 (>60 ml/min/1.73 sqM) Est GFR (CKD-EPI)NonAf >90 (>60 ml/min/1.73 sqM) Glucose 87 (74-99) mg/dL Calcium 9.2 (8.4-10.2) mg/dL Total Bilirubin 0.3 (0.2-1.3) mg/dL AST 21 (14-36) U/L ALT 19 (4-34) U/L Alkaline Phosphatase 84 (38-126) U/L Total Protein 7.3 (6.3-8.2) g/dL Albumin 4.1 (3.5-5.0) g/dL Amylase (30-110) U/L Lipase (23-300) U/L Urine Color Urine Appearance (Clear) Urine pH (5.0-8.0) Ur Specific [place] (1.001-1.035) Urine Protein (Negative) Urine Glucose (UA) (Negative) Urine Ketones (Negative) Urine Blood (Negative) Urine Nitrite (Negative) Urine Bilirubin (Negative) Urine Urobilinogen (<2.0) mg/dL Ur Leukocyte Esterase (Negative) Urine RBC (0-5) /hpf Urine WBC (0-5) /hpf Ur Squamous Epith Cells (0-4) /hpf Urine Mucus (None) /hpf 03/11/23 03/11/23 Range/Units 15:27 18:18 WBC (3.8-10.6) k/uL RBC (3.80-5.40) m/uL Hgb (11.4-16.0) gm/dL Hct (34.0-46.0) % MCV (80.0-100.0) fL MCH (25.0-35.0) pg MCHC (31.0-37.0) g/dL RDW (11.5-15.5) % Plt Count (150-450) k/uL MPV Neutrophils % % Lymphocytes % % Monocytes % % Eosinophils % % Basophils % % Neutrophils # (1.3-7.7) k/uL Lymphocytes # (1.0-4.8) k/uL Monocytes # (0-1.0) k/uL Eosinophils # (0-0.7) k/uL Basophils # (0-0.2) k/uL PT (9.0-12.0) sec INR (<1.2) APTT (22.0-30.0) sec Sodium (137-145) mmol/L Potassium (3.5-5.1) mmol/L Chloride (98-107) mmol/L Carbon Dioxide (22-30) mmol/L Anion Gap mmol/L BUN (7-17) mg/dL Creatinine (0.52-1.04) mg/dL Est GFR (CKD-EPI)AfAm (>60 ml/min/1.73 sqM) Est GFR (CKD-EPI)NonAf (>60 ml/min/1.73 sqM) Glucose (74-99) mg/dL Calcium (8.4-10.2) mg/dL Total Bilirubin (0.2-1.3) mg/dL AST (14-36) U/L ALT (4-34) U/L Alkaline Phosphatase (38-126) U/L Total Protein (6.3-8.2) g/dL Albumin (3.5-5.0) g/dL Amylase 62 (30-110) U/L Lipase 71 (23-300) U/L Urine Color Light Yellow Urine Appearance Clear (Clear) Urine pH 6.5 (5.0-8.0) Ur Specific [place] 1.007 (1.001-1.035) Urine Protein Negative (Negative) Urine Glucose (UA) Negative (Negative) Urine Ketones Negative (Negative) Urine Blood Moderate H (Negative) Urine Nitrite Negative (Negative) Urine Bilirubin Negative (Negative) Urine Urobilinogen <2.0 (<2.0) mg/dL Ur Leukocyte Esterase Negative (Negative) Urine RBC 2 (0-5) /hpf Urine WBC <1 (0-5) /hpf Ur Squamous Epith Cells <1 (0-4) /hpf Urine Mucus Rare H (None) /hpf Disposition Clinical Impression: Fibroids Disposition: HOME SELF-CARE Condition: Good Instructions (If sedation given, give patient instructions): Dysmenorrhea (ED) Additional Instructions: Please return to the Emergency Department if symptoms worsen or any other concerns. Is patient prescribed a controlled substance at d/c from ED?: No Referrals: None,Stated [Primary Care Provider] - 1-2 days Srinivas Ribera MD [STAFF PHYSICIAN] - 1-2 days Time of Disposition: 19:15
[2023-03-11 17:52] VITALS: RESP 16
[2023-03-11] MEDS ORDERED: KETOROLAC 15 MG/ML 1 ML VIAL IM STA (18:06)
[2023-03-11 18:20] LABS: Amylase 62 U/L (30-110); Lipase 71 U/L (23-300)
--- NOTE | 2023-03-11 18:27 | US ---
EXAMINATION TYPE: US transvaginal DATE OF EXAM: 03/11/2023 COMPARISON: CT abdomen 07/15/2021 CLINICAL INDICATION: Female, 47 years old with history of vaginal bleeding; Vaginal bleeding x 3 days . Patient states she is post menopausal. . TECHNIQUE: Transvaginal (TV). Date of LMP: 2 years ago per patient. EXAM MEASUREMENTS: Uterus: 7.4 x 4.3 x 3.6 cm Endometrial Stripe: 0.54 cm Right Ovary: Obscured Left Ovary: Obscured 1. Uterus: Anteverted Appears heterogeneous. -Hypoechoic, solid areas seen within the uterus, superior area measures: 0.9 x 0.9 x 0.6 cm. Addition al hypoechoic area seen mid uterus: 1.6 x 1.5 x 1.2 cm. Are consistent with uterine fibroids. 2. Endometrium: Pt states she is post menopausal, endo measured at 0.54 cm. 3. Right Ovary: Obscured 4. Left Ovary: Obscured 5. Bilateral Adnexa: No abnormalities seen 6. Posterior cul-de-sac: Fluid seen within: 1.2 x 1.4 x 0.6 cm. IMPRESSION: 1. Multi-fibroid uterus without sonographic evidence for acute abnormality. 2. Endometrial stripe on the upper limits of normal at 5 mm, consider non-emergent sonographic follow -up in 4-6 weeks for reevaluation. 3. Non-visualization of the ovaries bilaterally.
[2023-03-11 19:04] LABS: Appearance,Urine Clear (Clear); Bilirubin,Urine Negative (Negative); Blood,Urine Moderate (Negative); Color,Urine Light Yellow; Glucose,Urine (UA) Negative (Negative); Ketones,Urine Negative (Negative); Leukocyte Esterase,Urine Negative (Negative); Mucus,Urine Rare /hpf; Nitrite,Urine Negative (Negative); PH, Urine 6.5 (5.0-8.0); Protein,Urine Negative (Negative); RBC,Urine 2 /hpf (0-5); Specific Gravity,Urine 1.007 (1.001-1.035); Squamous Epithelial Cell,Urine <1 /hpf (0-4); Urobilinogen,Urine <2.0 mg/dL (<2.0); WBC,Urine <1 /hpf (0-5)
[2023-03-11] MEDS ORDERED: IBUPROFEN 600 MG STARTER PACK 4 TAB BTL PO STA (19:14)
[2023-03-11 19:26] VITALS: BP 130/70; PULSE 79; TEMP 98.2
== END 2023-03-11 19:25 | disposition home or self-care (01) ==
LOC: EC 13:51
DX: D25.9 Leiomyoma of uterus, unspecified (principal); J44.9 Chronic obstructive pulmonary disease, unspecified; K21.9 Gastro-esophageal reflux disease without esophagitis; F41.9 Anxiety disorder, unspecified; F17.200 Nicotine dependence, unspecified, uncomplicated; F12.90 Cannabis use, unspecified, uncomplicated; Z79.899 Other long term (current) drug therapy; Z86.16 Personal history of COVID-19
CPT/HCPCS: 36415; 80053; 82150; 83690; 85025; 85610; 85730; 81001; 76830; 99284; 96372; J1885

== ENCOUNTER 2023-10-02 15:07 | Emergency (ER) | payer BC ==
--- NOTE | 2023-10-02 15:18 | ED ---
General Adult HPI - General Chief complaint: Chest Pain Stated complaint: Anxiety Time Seen by Provider: 10/02/23 15:16 Source: patient, EMS Mode of arrival: EMS Limitations: no limitations - History of Present Illness Initial comments: Patient presents to the ED by ambulance for evaluation. Patient states that she has had a "panic attack" for the past couple of hours. Patient states that her anxiety and panic attack began after "discovering something bad" that she does not want to speak about at this time. She states that she has had chest tightn ess with her anxiety, but she states that her anxiety and chest tightness are now improving. Patient denies alcohol use. Patient admits to occasional marijuana use. Patient denies any other illicit drug use. Patient denies suicidal ideations, homicidal ideations, hallucinations, trauma or injury, fever or chills, headache, focal numbness/weakness/neuro deficit, neck/arm/jaw/back pain, pleuritic pain, dyspnea, palpitations, dizziness, nausea/vomiting/diaphoresis, abdominal pain, diarrhea, bloody or melanotic stool, dysuria or urinary symptoms, leg or calf swelling or pain, or any other symptoms or complaints. - Related Data Home Medications Medication Instructions Recorded Confirmed Famotidine 40 mg PO HS 07/20/14 06/12/22 QUEtiapine [SEROquel] 200 mg PO HS 03/16/17 06/12/22 Albuterol Inhaler [Ventolin Hfa 2 puff INHALATION Q6H PRN 06/10/22 06/12/22 Inhaler] Albuterol Nebulizer(Dose Unknw 1 applicate IH DIRECTED PRN 06/10/22 06/12/22 Ibuprofen [Motrin Ib] 200 mg PO Q8H PRN 06/10/22 06/12/22 Omeprazole [PriLOSEC] 40 mg PO HS 06/10/22 06/12/22 Sucralfate [Carafate] 1 gm PO DIRECTED PRN 06/10/22 06/12/22 Previous Rx's Medication Instructions Recorded Ibuprofen [Motrin] 600 mg PO Q8HR PRN #30 tab 03/11/23 Allergies Allergy/AdvReac Type Severity Reaction Status Date / Time No Known Allergies Allergy Verified 10/02/23 15:17 Review of Systems ROS Statement: Those systems with pertinent positive or pertinent negative responses have been documented in the HPI. ROS Other: All systems not noted in ROS Statement are negative. 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 History of Any Multi-Drug Resistant Organisms: None Reported Past Surgical History: Back Surgery, Orthopedic Surgery, Tonsillectomy, Tubal Ligation Additional Past Surgical History / Comment(s): "precancerous polyps" removed from esophagus and stomach x2, back surgery for ruptured disk sx, EGD, rt ring r edgar tendon repaired Past Anesthesia/Blood Transfusion Reactions: No Reported Reaction Past Psychological History: Anxiety Smoking Status: Current every day smoker Past Alcohol Use History: None Reported Past Drug Use History: Marijuana - Past Family History Mother Family Medical History: Cancer Additional Family Medical History / Comment(s): breast Sister(s) Family Medical History: Deep Vein Thrombosis (DVT), Pulmonary Embolus General Exam Limitations: no limitations General appearance: alert Head exam: Present: normocephalic Eye exam: Present: PERRL, EOMI ENT exam: Present: mucous membranes moist Neck exam: Present: other (Trachea is in midline) Respiratory exam: Present: normal lung sounds bilaterally. Absent: respiratory distress, wheezes, rales, rhonchi, stridor, chest wall tenderness Cardiovascular Exam: Present: normal rhythm, tachycardia, normal heart sounds, other (Normal radial pulses bilaterally) GI/Abdominal exam: Present: soft. Absent: distended, tenderness, guarding Extremities exam: Present: other (Negative Homans sign bilaterally). Absent: tenderness, pedal edema, calf tenderness Neurological exam: Present: alert, oriented X3 Psychiatric exam: Present: anxious, other (Tearful) Skin exam: Present: warm, dry, normal color Course Vital Signs 10/02/23 10/02/23 10/02/23 15:08 15:24 17:40 Temperature 98.7 F Pulse Rate 116 H 80 Respiratory 22 20 Rate Blood Pressure 188/123 119/102 O2 Sat by Pulse 99 100 Oximetry - Reevaluation(s) Reevaluation #1: 10/02/23 19:19 I was notified by ED RN that the patient has eloped from the ED, and she is unsure when the patient left. EKG Findings - EKG Comments: EKG Findings:: ED physician interpretation (interpreted by me): Normal sinus rhythm, ventricular rate of 79 bpm, no ectopy, normal GA and QRS intervals, normal QT interval, normal axis, no ST or T-wave abnormality Medical Decision Making - Medical Decision Making Was pt. sent in by a medical professional or institution (, [facility], [facility], urgent care, hospital, or long term...) When possible be specific @ -[No] Did you speak to anyone other than the patient for history (EMS, parent, family, police, friend...)? What history was obtained from this source @ -[No] Did you review nursing and triage notes (agree or disagree)? Why? @ -[I reviewed and agree with nursing and triage notes] Were old charts reviewed (outside hosp., previous admission, EMS record, old EKG, old radiological studies, urgent care reports/EKG's, long term records)? Report findings @ -[No old charts were reviewed] Differential Diagnosis (chest pain, altered mental status, abdominal pain women, abdominal pain men, vaginal bleeding, weakness, fever, dyspnea, syncope, headache, dizziness, GI bleed, back pain, seizure, CVA, palpatations, mental health, musculoskeletal)? @ -[Differential Chest Pain: Stable Angina, Unstable Angina, STEMI, NSTEMI, Pneumothorax, Musculoskeletal, Esophageal Spasm GERD, anxiety, panic disorder, mental health disease, this is not meant to be an all-inclusive list. ] EKG interpreted by me (3pts min.). @ -[As above] X-rays interpreted by me (1pt min.). @ -[patient refused.] CT interpreted by me (1pt min.). @ -[None done] U/S interpreted by me (1pt. min.). @ -[None done] What testing was considered but not performed or refused? (CT, X-rays, U/S, labs)? Why? @ -[None] What meds were considered but not given or refused? Why? @ -[None] Did you discuss the management of the patient with other professionals (professionals i.e. DANISH Borjas, [facility], lab, RT, psych nurse, foster care social worker, training development manager, teacher, account officer, case operator)? Give summary @ -[No] Was smoking cessation discussed for >3mins.? @ -[No] Was critical care preformed (if so, how long)? @ -[No] Were there social determinants of health that impacted care today? How? (Homelessness, low income, unemployed, alcoholism, drug addiction, transportation, low edu. Level, literacy, decrease access to med. care, intermediate, rehab)? @ -[No] Was there de-escalation of care discussed even if they declined (Discuss DNR or withdrawal of care, Hospice)? DNR status @ -[No] What co-morbidities impacted this encounter? (DM, HTN, Smoking, COPD, CAD, Cancer, CVA, ARF, Chemo, Hep., AIDS, mental health diagnosis, sleep apnea, morbid obesity)? @ -[None] Was patient admitted / discharged? Hospital course, mention meds given and route, prescriptions, significant lab abnormalities, going to OR and other pertinent info. @ -[Patient's labs are fairly unremarkable except for her urine drug screen, which shows polysubstance abuse. Patient's troponin is within normal limits. Patient has refused chest x-ray. I was notified by the patient's RN that the patient has eloped from the ED, and she is unsure when the patient left.] Undiagnosed new problem with uncertain prognosis? @ -[No] Drug Therapy requiring intensive monitoring for toxicity (Heparin, Nitro, Insulin, Cardizem)? @ -[No] Were any procedures done? @ -[No] Diagnosis/symptom? @ -[anxiety and polysubstance abuse] Acute, or Chronic, or Acute on Chronic? @ -[default] Uncomplicated (without systemic symptoms) or Complicated (systemic symptoms)? @ -[default] Side effects of treatment? @ -[No] Exacerbation, Progression, or Severe Exacerbation? @ -[No] Poses a threat to life or bodily function? How? (Chest pain, [place], [place], pneumonia, PE, COPD, DKA, ARF, appy, cholecystitis, CVA, Diverticulitis, Homicidal, Suicidal, threat to staff... and all critical care pts) @ -[No] - Lab Data Result diagrams: 10/02/23 16:14 10/02/23 16:14 Lab Results 10/02/23 10/02/23 10/02/23 Range/Units 16:14 16:14 16:14 WBC 9.5 (3.8-10.6) k/uL RBC 4.94 (3.80-5.40) m/uL Hgb 16.0 (11.4-16.0) gm/dL Hct 49.2 H (34.0-46.0) % MCV 99.7 (80.0-100.0) fL MCH 32.5 (25.0-35.0) pg MCHC 32.6 (31.0-37.0) g/dL RDW 12.6 (11.5-15.5) % Plt Count 258 (150-450) k/uL MPV 8.3 Neutrophils % 73 % Lymphocytes % 16 % Monocytes % 8 % Eosinophils % 1 % Basophils % 0 % Neutrophils # 7.0 (1.3-7.7) k/uL Lymphocytes # 1.5 (1.0-4.8) k/uL Monocytes # 0.8 (0-1.0) k/uL Eosinophils # 0.1 (0-0.7) k/uL Basophils # 0.0 (0-0.2) k/uL PT 9.8 L (10.0-12.5) sec INR 0.9 (<1.2) APTT 24.7 (22.0-30.0) sec Sodium 142 (137-145) mmol/L Potassium 4.2 (3.5-5.1) mmol/L Chloride 109 H (98-107) mmol/L Carbon Dioxide 25 (22-30) mmol/L Anion Gap 8 mmol/L BUN 11 (7-17) mg/dL Creatinine 0.55 (0.52-1.04) mg/dL Est GFR (CKD-EPI)AfAm >90 (>60 ml/min/1.73 sqM) Est GFR (CKD-EPI)NonAf >90 (>60 ml/min/1.73 sqM) Glucose 101 H (74-99) mg/dL Calcium 9.7 (8.4-10.2) mg/dL Total Bilirubin 0.4 (0.2-1.3) mg/dL AST 23 (14-36) U/L ALT 32 (4-34) U/L Alkaline Phosphatase 83 (38-126) U/L Troponin I (0.000-0.034) ng/mL NT-Pro-B Natriuret Pep 73 pg/mL Total Protein 7.5 (6.3-8.2) g/dL Albumin 4.4 (3.5-5.0) g/dL Urine Opiates Screen (NotDetected) Ur Oxycodone Screen (NotDetected) Urine Methadone Screen (NotDetected) Ur Barbiturates Screen (NotDetected) U Tricyclic Antidepress (NotDetected) Ur Phencyclidine Scrn (NotDetected) Ur Amphetamines Screen (NotDetected) U Methamphetamines Scrn (NotDetected) U Benzodiazepines Scrn (NotDetected) Urine Cocaine Screen (NotDetected) U Marijuana (THC) Screen (NotDetected) Serum Alcohol mg/dL 10/02/23 10/02/23 10/02/23 Range/Units 16:14 17:55 18:00 WBC (3.8-10.6) k/uL RBC (3.80-5.40) m/uL Hgb (11.4-16.0) gm/dL Hct (34.0-46.0) % MCV (80.0-100.0) fL MCH (25.0-35.0) pg MCHC (31.0-37.0) g/dL RDW (11.5-15.5) % Plt Count (150-450) k/uL MPV Neutrophils % % Lymphocytes % % Monocytes % % Eosinophils % % Basophils % % Neutrophils # (1.3-7.7) k/uL Lymphocytes # (1.0-4.8) k/uL Monocytes # (0-1.0) k/uL Eosinophils # (0-0.7) k/uL Basophils # (0-0.2) k/uL PT (10.0-12.5) sec INR (<1.2) APTT (22.0-30.0) sec Sodium (137-145) mmol/L Potassium (3.5-5.1) mmol/L Chloride (98-107) mmol/L Carbon Dioxide (22-30) mmol/L Anion Gap mmol/L BUN (7-17) mg/dL Creatinine (0.52-1.04) mg/dL Est GFR (CKD-EPI)AfAm (>60 ml/min/1.73 sqM) Est GFR (CKD-EPI)NonAf (>60 ml/min/1.73 sqM) Glucose (74-99) mg/dL Calcium (8.4-10.2) mg/dL Total Bilirubin (0.2-1.3) mg/dL AST (14-36) U/L ALT (4-34) U/L Alkaline Phosphatase (38-126) U/L Troponin I <0.012 (0.000-0.034) ng/mL NT-Pro-B Natriuret Pep pg/mL Total Protein (6.3-8.2) g/dL Albumin (3.5-5.0) g/dL Urine Opiates Screen Not Detected (NotDetected) Ur Oxycodone Screen Not Detected (NotDetected) Urine Methadone Screen Not Detected (NotDetected) Ur Barbiturates Screen Not Detected (NotDetected) U Tricyclic Antidepress Not Detected (NotDetected) Ur Phencyclidine Scrn Not Detected (NotDetected) Ur Amphetamines Screen Detected H (NotDetected) U Methamphetamines Scrn Detected H (NotDetected) U Benzodiazepines Scrn Detected H (NotDetected) Urine Cocaine Screen Not Detected (NotDetected) U Marijuana (THC) Screen Detected H (NotDetected) Serum Alcohol <10 mg/dL - Radiology Data (Patient refused chest x-ray.) Disposition Clinical Impression: Anxiety, Polysubstance abuse Disposition: LEFT AGAINST MEDICAL ADVICE Is patient prescribed a controlled substance at d/c from ED?: No Referrals: None,Stated [Primary Care Provider] - 1-2 days Time of Disposition: 19:19 (Patient eloped from the ED.)
[2023-10-02] MEDS ORDERED: LORazepam 2 MG/ML INJ IV STA ×2 (15:24→17:47)
[2023-10-02 15:35] VITALS: TEMP 98.7
[2023-10-02 16:50] LABS: Basophils % (A) 0 %; Eosinophils # (A) 0.1 k/uL (0-0.7); Eosinophils % (A) 1 %; HCT 49.2 % (34.0-46.0); Lymphocytes # (A) 1.5 k/uL (1.0-4.8); Lymphocytes % (A) 16 %; MCH 32.5 pg (25.0-35.0); MCHC 32.6 g/dL (31.0-37.0); MCV 99.7 fL (80.0-100.0); Mean Platelet Volume 8.3; Monocytes # (A) 0.8 k/uL (0-1.0); Monocytes % (A) 8 %; Neutrophils % (A) 73 %; Platelet Count 258 k/uL (150-450); RBC 4.94 m/uL (3.80-5.40); RDW 12.6 % (11.5-15.5); WBC 9.5 k/uL (3.8-10.6)
[2023-10-02 17:00] LABS: ALT 32 U/L (4-34); AST 23 U/L (14-36); African American GFR (CKD) >90 (>60 ml/min/1.73 sqM); Albumin 4.4 g/dL (3.5-5.0); Alkaline Phosphatase 83 U/L (38-126); Anion Gap 8 mmol/L; Blood Urea Nitrogen 11 mg/dL (7-17); Calcium 9.7 mg/dL (8.4-10.2); Carbon Dioxide 25 mmol/L (22-30); Chloride 109 mmol/L (98-107); Glucose 101 mg/dL (74-99); INR 0.9 (<1.2); Non-African American GFR(CKD) >90 (>60 ml/min/1.73 sqM); Partial Thromboplastin Time 24.7 sec (22.0-30.0); Potassium 4.2 mmol/L (3.5-5.1); Prothrombin Time 9.8 sec (10.0-12.5); Sodium 142 mmol/L (137-145); Total Bilirubin 0.4 mg/dL (0.2-1.3); Total Protein 7.5 g/dL (6.3-8.2)
[2023-10-02 17:07] LABS: NT-Pro-B-Type Natriuretic Pept 73 pg/mL
[2023-10-02 17:57] VITALS: BP 119/102; PULSE 80; RESP 20
[2023-10-02 18:54] LABS: Amphetamine Screen,Urine Detected (NotDetected); Barbiturate Screen,Urine Not Detected (NotDetected); Benzodiazepines Screen,Urine Detected (NotDetected); Cocaine Screen,Urine Not Detected (NotDetected); Methadone Screen, Urine Not Detected (NotDetected); Opiate Screen,Urine Not Detected (NotDetected); Oxycodone Screen, Urine Not Detected (NotDetected); Phencyclidine Screen,Urine Not Detected (NotDetected); Tricyclic Antidepressant,Urine Not Detected (NotDetected); Urn Cannabinoid Scrn Detected (NotDetected)
== END 2023-10-02 19:22 | disposition left against medical advice (07) ==
LOC: EC 15:07
DX: F41.0 Panic disorder [episodic paroxysmal anxiety] (principal); F19.10 Other psychoactive substance abuse, uncomplicated; J44.9 Chronic obstructive pulmonary disease, unspecified; K21.9 Gastro-esophageal reflux disease without esophagitis; I48.91 Unspecified atrial fibrillation; F17.200 Nicotine dependence, unspecified, uncomplicated; F12.90 Cannabis use, unspecified, uncomplicated; Z86.16 Personal history of COVID-19; Z79.899 Other long term (current) drug therapy
CPT/HCPCS: 36415; 93005; 83880; 80053; 84484; 85025; 85610; 85730; 80306; 80320; 99285; 96374; 96376; J2060

== ENCOUNTER 2023-10-17 13:44 | Emergency (ER) | payer BC ==
[2023-10-17 14:08] VITALS: TEMP 97.7
--- NOTE | 2023-10-17 14:10 | ED ---
Abdominal Pain HPI - General Chief Complaint: Abdominal Pain Stated Complaint: blood in urine, vomitting/stomach pain Time Seen by Provider: 10/17/23 14:08 Source: patient, RN notes reviewed Mode of arrival: ambulatory Limitations: no limitations - History of Present Illness Initial Comments: Patient is a 48-year-old female presenting to the ER with a chief complaint of right lower quadrant pain. Patient states for the past 3 to 5 days she has been having right lower quadrant pain which has been increasing in strength. Patient describes it as a sharp stabbing pain. Patient also was endorsing nausea with green foamy emesis. Patient reports constant diarrhea for the past week. Patient denies fevers but is stating she feels the chills. Patient was seen at urgent care prior to arrival and was found to have hematuria. Patient also has suprapubic pain and describes it as a bulging/pressure sensation. Patient states she does smoke marijuana regularly. Denies any chest pain, shortness of breath, peripheral edema. - Related Data Home Medications Medication Instructions Recorded Confirmed Famotidine 40 mg PO HS 07/20/14 06/12/22 QUEtiapine [SEROquel] 200 mg PO HS 03/16/17 06/12/22 Albuterol Inhaler [Ventolin Hfa 2 puff INHALATION Q6H PRN 06/10/22 06/12/22 Inhaler] Albuterol Nebulizer(Dose Unknw 1 applicate IH DIRECTED PRN 06/10/22 06/12/22 Ibuprofen [Motrin Ib] 200 mg PO Q8H PRN 06/10/22 06/12/22 Omeprazole [PriLOSEC] 40 mg PO HS 06/10/22 06/12/22 Sucralfate [Carafate] 1 gm PO DIRECTED PRN 06/10/22 06/12/22 Previous Rx's Medication Instructions Recorded Ibuprofen [Motrin] 600 mg PO Q8HR PRN #30 tab 03/11/23 Doxycycline [Vibramycin] 100 mg PO BID #28 capsule 10/17/23 metroNIDAZOLE [Flagyl] 500 mg PO BID 14 Days #28 tab 10/17/23 Allergies Allergy/AdvReac Type Severity Reaction Status Date / Time No Known Allergies Allergy Verified 10/02/23 15:17 Review of Systems ROS Statement: Those systems with pertinent positive or pertinent negative responses have been documented in the HPI. ROS Other: All systems not noted in ROS Statement are negative. 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 History of Any Multi-Drug Resistant Organisms: None Reported Past Surgical History: Back Surgery, Orthopedic Surgery, Tonsillectomy, Tubal Ligation Additional Past Surgical History / Comment(s): "precancerous polyps" removed from esophagus and stomach x2, back surgery for ruptured disk sx, EGD, rt ring ringer tendon repaired Past Anesthesia/Blood Transfusion Reactions: No Reported Reaction Past Psychological History: Anxiety Smoking Status: Current every day smoker Past Alcohol Use History: None Reported Past Drug Use History: Marijuana - Past Family History Mother Family Medical History: Cancer Additional Family Medical History / Comment(s): breast Sister(s) Family Medical History: Deep Vein Thrombosis (DVT), Pulmonary Embolus General Exam Limitations: no limitations General appearance: alert, in no apparent distress Head exam: Present: atraumatic, normocephalic, normal inspection Respiratory exam: Present: normal lung sounds bilaterally. Absent: respiratory distress, wheezes, rales, rhonchi, stridor Cardiovascular Exam: Present: regular rate, normal rhythm, normal heart sounds. Absent: systolic murmur, diastolic murmur, rubs, gallop, clicks GI/Abdominal exam: Present: soft, tenderness (RLQ, RUQ, LLQ), normal bowel sounds, other (McBurney's point tenderness, Rovsing sign positive) External exam: Present: normal external exam Speculum exam: Present: normal speculum exam, cervical discharge (Scant white) By manual exam: Present: cervical motion tenderness (Mild) Neurological exam: Present: alert, oriented X3, CN II-XII intact Psychiatric exam: Present: normal affect, normal mood, anxious Skin exam: Present: warm, dry, intact, normal color. Absent: rash Course Vital Signs 10/17/23 10/17/23 13:49 15:49 Temperature 97.7 F Pulse Rate 100 84 Respiratory 20 16 Rate Blood Pressure 151/105 145/90 O2 Sat by Pulse 98 97 Oximetry Medical Decision Making - Medical Decision Making Was pt. sent in by a medical professional or institution (Dr., PA, ADVENTURE THERAPIST, urgent care, hospital, or prison...) When possible be specific @ -Urgent care for evaluation of right lower quadrant pain and hematuria. Rule out appendicitis. Did you speak to anyone other than the patient for history (EMS, parent, family, police, friend...)? What history was obtained from this source @ -No Did you review nursing and triage notes (agree or disagree)? Why? @ -I reviewed and agree with nursing and triage notes Were old charts reviewed (outside hosp., previous admission, EMS record, old EKG, old radiological studies, urgent care reports/EKG's, prison records)? Report findings @ -No old charts were reviewed Differential Diagnosis (chest pain, altered mental status, abdominal pain women, abdominal pain men, vaginal bleeding, weakness, fever, dyspnea, syncope, headache, dizziness, GI bleed, back pain, seizure, CVA, palpatations, mental health, musculoskeletal)? @ -Differential Abdominal Pain Women: Appendicitis, Cholecystitis, diverticulosis, ischemic bowel, pancreatitis, hepatitis, UTI, gastroenteritis, AAA, incarcerated hernia, bowel obstruction, constipation, inflammatory bowel, hepatitis, peptic ulcer disease, splenic infarction, perforated viscus, vulvitis, ovarian torsion, PID, kidney stone, placenta abruption, this is not meant to be an all-inclusive list EKG interpreted by me (3pts min.). @ -None X-rays interpreted by me (1pt min.). @ -None done CT interpreted by me (1pt min.). @ -CT abdomen pelvis shows no acute process. U/S interpreted by me (1pt. min.). @ -None done What testing was considered but not performed or refused? (CT, X-rays, U/S, labs)? Why? @ -None What meds were considered but not given or refused? Why? @ -None Did you discuss the management of the patient with other professionals ( professionals i.e. , PA, ADVENTURE THERAPIST, lab, RT, psych nurse, social science teacher, inclusion special educator, teacher, national insurance officer, continuous pillowcase cutter)? Give summary @ -No Was smoking cessation discussed for >3mins.? @ -I discussed smoking cessation for greater than 3 minutes. The risk of smoking were discussed with the patient including but not limited to risks of cancer, stroke, coronary artery disease and COPD. Also discussed with patient were multiple methods of quitting smoking. Lastly we discussed the financial cost of smoking. Was critical care preformed (if so, how long)? @ -No Were there social determinants of health that impacted care today? How? (Homelessness, low income, unemployed, alcoholism, drug addiction, transportation, low edu. Level, literacy, decrease access to med. care, group home, rehab)? @ -No Was there de-escalation of care discussed even if they declined (Discuss DNR or withdrawal of care, Hospice)? DNR status @ -No What co-morbidities impacted this encounter? (DM, HTN, Smoking, COPD, CAD, Ca ncer, CVA, ARF, Chemo, Hep., AIDS, mental health diagnosis, sleep apnea, morbid obesity)? @ -Marijuana smoker, Anxiety Was patient admitted / discharged? Hospital course, mention meds given and route , prescriptions, significant lab abnormalities, going to OR and other pertinent info. @ -Discharge. Patient is a 48-year-old female presenting ER with a chief complaint of right lower quadrant abdominal pain. Patient was sent here by urgent care for evaluation to rule out appendicitis. Patient was also found to have hematuria at urgent care. History and physical exam were completed. Vitals stable. Patient was in no signs of acute distress. Patient did have tenderness to palpation of right and left lower quadrants. Labs obtained the ER are unremarkable. WBC 10.5, BUN 13, creatinine 0.46. Urinalysis does show small amount of blood which has been sent for culture. CT abdomen pelvis shows no acute process. Patient received IV fluids, Toradol, Dilaudid, Zofran with mild improvement of symptoms. Patient does report that she smokes marijuana daily denies any other drug use. Upon reevaluation, patient states that her ex- was cheating on her and she is concerned for STDs. Pelvic exam completed at that time. Exam chaperoned by Alycia Sood RN. Exam significant for scant white cervical discharge. Mild cervical motion tenderness. Due to concern of STDs patient will be prophylactically treated with Rocephin, doxycycline, Flagyl. Educated on importance of completing full course of antibiotics. Return parameters were discussed. Patient will be discharged stable condition with follow-up to PCP/GEOLOGY PROFESSOR. Referral given. Patient expressed understanding and agreement with care plan. Undiagnosed new problem with uncertain prognosis? @ -No Drug Therapy requiring intensive monitoring for toxicity (Heparin, Nitro, Insulin, Cardizem)? @ -No Were any procedures done? @ -No Diagnosis/symptom? @ -Abdominal pain/STD exposure Acute, or Chronic, or Acute on Chronic? @ -Acute Uncomplicated (without systemic symptoms) or Complicated (systemic symptoms)? @ -Uncomplicated Side effects of treatment? @ -No Exacerbation, Progression, or Severe Exacerbation? @ -No Poses a threat to life or bodily function? How? (Chest pain, [place], GA, pneumonia, PE, COPD, DKA, ARF, appy, cholecystitis, CVA, Diverticulitis, Homicidal, Suicidal, threat to staff... and all critical care pts) @ -Unlikely - Lab Data Result diagrams: 10/17/23 14:30 10/17/23 14:30 Lab Results 10/17/23 10/17/23 10/17/23 Range/Units 14:30 14:30 14:30 WBC 10.5 (3.8-10.6) k/uL RBC 4.81 (3.80-5.40) m/uL Hgb 15.5 (11.4-16.0) gm/dL Hct 48.4 H (34.0-46.0) % MCV 100.6 H (80.0-100.0) fL MCH 32.1 (25.0-35.0) pg MCHC 31.9 (31.0-37.0) g/dL RDW 13.0 (11.5-15.5) % Plt Count 316 (150-450) k/uL MPV 8.1 Sodium 142 (137-145) mmol/L Potassium 4.1 (3.5-5.1) mmol/L Chloride 109 H (98-107) mmol/L Carbon Dioxide 23 (22-30) mmol/L Anion Gap 10 mmol/L BUN 13 (7-17) mg/dL Creatinine 0.46 L (0.52-1.04) mg/dL Est GFR (CKD-EPI)AfAm >90 (>60 ml/min/1.73 sqM) Est GFR (CKD-EPI)NonAf >90 (>60 ml/min/1.73 sqM) Glucose 100 H (74-99) mg/dL Plasma Lactic Acid [place] (0.7-2.0) mmol/L Calcium 10.0 (8.4-10.2) mg/dL Total Bilirubin 0.5 (0.2-1.3) mg/dL AST 21 (14-36) U/L ALT 29 (4-34) U/L Alkaline Phosphatase 89 (38-126) U/L Total Protein 7.6 (6.3-8.2) g/dL Albumin 4.4 (3.5-5.0) g/dL Amylase 65 (30-110) U/L Lipase 49 (23-300) U/L Urine Color Yellow Urine Appearance Clear (Clear) Urine pH 6.0 (5.0-8.0) Ur Specific [place] 1.025 (1.001-1.035) Urine Protein Trace H (Negative) Urine Glucose (UA) Negative (Negative) Urine Ketones Negative (Negative) Urine Blood Small H (Negative) Urine Nitrite Negative (Negative) Urine Bilirubin Negative (Negative) Urine Urobilinogen <2.0 (<2.0) mg/dL Ur Leukocyte Esterase Negative (Negative) Urine RBC 2 (0-5) /hpf Urine WBC 2 (0-5) /hpf Ur Squamous Epith Cells 7 H (0-4) /hpf Urine Mucus Moderate H (None) /hpf 10/17/23 Range/Units 14:30 WBC (3.8-10.6) k/uL RBC (3.80-5.40) m/uL Hgb (11.4-16.0) gm/dL Hct (34.0-46.0) % MCV (80.0-100.0) fL MCH (25.0-35.0) pg MCHC (31.0-37.0) g/dL RDW (11.5-15.5) % Plt Count (150-450) k/uL MPV Sodium (137-145) mmol/L Potassium (3.5-5.1) mmol/L Chloride (98-107) mmol/L Carbon Dioxide (22-30) mmol/L Anion Gap mmol/L BUN (7-17) mg/dL Creatinine (0.52-1.04) mg/dL Est GFR (CKD-EPI)AfAm (>60 ml/min/1.73 sqM) Est GFR (CKD-EPI)NonAf (>60 ml/min/1.73 sqM) Glucose (74-99) mg/dL Plasma Lactic Acid [place] 1.1 (0.7-2.0) mmol/L Calcium (8.4-10.2) mg/dL Total Bilirubin (0.2-1.3) mg/dL AST (14-36) U/L ALT (4-34) U/L Alkaline Phosphatase (38-126) U/L Total Protein (6.3-8.2) g/dL Albumin (3.5-5.0) g/dL Amylase (30-110) U/L Lipase (23-300) U/L Urine Color Urine Appearance (Clear) Urine pH (5.0-8.0) Ur Specific [place] (1.001-1.035) Urine Protein (Negative) Urine Glucose (UA) (Negative) Urine Ketones (Negative) Urine Blood (Negative) Urine Nitrite (Negative) Urine Bilirubin (Negative) Urine Urobilinogen (<2.0) mg/dL Ur Leukocyte Esterase (Negative) Urine RBC (0-5) /hpf Urine WBC (0-5) /hpf Ur Squamous Epith Cells (0-4) /hpf Urine Mucus (None) /hpf - Radiology Data Radiology results: report reviewed, image reviewed Disposition Clinical Impression: Abdominal pain, STD exposure Disposition: HOME SELF-CARE Condition: Stable Instructions (If sedation given, give patient instructions): Sexually Transmitted Diseases (ED), Abdominal Pain (ED) Additional Instructions: Please complete full course of antibiotics. Follow-up with PCP/GEOLOGY PROFESSOR if symptoms persist. Return to the ER for any new or worsening symptoms. Prescriptions: metroNIDAZOLE [Flagyl] 500 mg PO BID 14 Days #28 tab Doxycycline [Vibramycin] 100 mg PO BID #28 capsule Is patient prescribed a controlled substance at d/c from ED?: No Referrals: None,Stated [Primary Care Provider] - 1-2 days Susanna Gallagher DO [Doctor of Osteopathic Medicine] - 1-2 days Time of Disposition: 15:43
[2023-10-17 14:41] LABS: HCT 48.4 % (34.0-46.0); HGB 15.5 gm/dL (11.4-16.0); MCH 32.1 pg (25.0-35.0); MCHC 31.9 g/dL (31.0-37.0); MCV 100.6 fL (80.0-100.0); Mean Platelet Volume 8.1; Platelet Count 316 k/uL (150-450); RBC 4.81 m/uL (3.80-5.40); WBC 10.5 k/uL (3.8-10.6)
[2023-10-17] MEDS: LORazepam 2 MG/ML INJ IV STA (14:43)
[2023-10-17] MEDS: ONDANSETRON 4 MG/2 ML VIAL IVP STA (14:44)
[2023-10-17] MEDS: KETOROLAC 15 MG/ML 1 ML VIAL IVP STA (14:46)
[2023-10-17] MEDS: SODIUM CHLORIDE 0.9% 1,000 ML IV STA (14:46)
[2023-10-17 14:49] LABS: Appearance,Urine Clear (Clear); Bilirubin,Urine Negative (Negative); Blood,Urine Small (Negative); Color,Urine Yellow; Glucose,Urine (UA) Negative (Negative); Ketones,Urine Negative (Negative); Leukocyte Esterase,Urine Negative (Negative); Mucus,Urine Moderate /hpf; Nitrite,Urine Negative (Negative); Protein,Urine Trace (Negative); RBC,Urine 2 /hpf (0-5); Specific Gravity,Urine 1.025 (1.001-1.035); Squamous Epithelial Cell,Urine 7 /hpf (0-4); Urobilinogen,Urine <2.0 mg/dL (<2.0); WBC,Urine 2 /hpf (0-5)
[2023-10-17 14:53] LABS: ALT 29 U/L (4-34); AST 21 U/L (14-36); African American GFR (CKD) >90 (>60 ml/min/1.73 sqM); Albumin 4.4 g/dL (3.5-5.0); Alkaline Phosphatase 89 U/L (38-126); Amylase 65 U/L (30-110); Anion Gap 10 mmol/L; Blood Urea Nitrogen 13 mg/dL (7-17); Carbon Dioxide 23 mmol/L (22-30); Chloride 109 mmol/L (98-107); Glucose 100 mg/dL (74-99); Lipase 49 U/L (23-300); Non-African American GFR(CKD) >90 (>60 ml/min/1.73 sqM); Potassium 4.1 mmol/L (3.5-5.1); Sodium 142 mmol/L (137-145); Total Bilirubin 0.5 mg/dL (0.2-1.3); Total Protein 7.6 g/dL (6.3-8.2)
[2023-10-17] MEDS: HYDROmorphone 0.5 MG/0.5 ML SYRINGE IVP STA ×2 (14:56→15:16)
--- NOTE | 2023-10-17 15:14 | CT ---
EXAMINATION TYPE: CT abdomen pelvis w con CT DLP: 893.4 mGycm, Automated exposure control for dose reduction was used. DATE OF EXAM: 10/17/2023 3:09 PM COMPARISON: CT abdomen pelvis most recent from CLINICAL INDICATION:Female, 48 years old with history of RLQ pain; right side abd pain TECHNIQUE: Axial CT of the abdomen and pelvis. Sagittal and coronal reformats were created on a [employer] workstation. Contrast used:100ml mL of Isovue 300 with IV Contrast, (none if empty) Oral contrast used: without Oral Contrast (none if empty) FINDINGS: LOWER CHEST: Unremarkable ABDOMEN LIVER: Unremarkable GALLBLADDER AND BILE DUCTS: Unremarkable. PANCREAS: Unremarkable. SPLEEN: Unremarkable. ADRENAL GLANDS: Unremarkable. KIDNEYS AND URETERS: No evidence of hydronephrosis or renal calculus. The ureters are unremarkable. PELVIS BLADDER: Unremarkable REPRODUCTIVE: Unremarkable. ABDOMEN & PELVIS STOMACH AND BOWEL: Stomach and duodenum are unremarkable. The appendix is unremarkable. No evidence o f bowel obstruction. PERITONEUM/RETROPERITONEUM: No evidence of pneumoperitoneum or free fluid. VASCULATURE: Mild atherosclerotic calcifications are present throughout the abdominal aorta and its b ranches. No evidence of aortic aneurysm. MUSCULOSKELETAL: No acute osseous abnormalities. Mild disc degeneration changes are present throughou t the thoracolumbar spine. LYMPH NODES: No gross evidence for lymphadenopathy. SOFT TISSUE/ABDOMINAL WALL: Unremarkable IMPRESSION: No acute intra-abdominal process.
[2023-10-17 15:56] VITALS: BP 145/90; PULSE 84; RESP 16
[2023-10-18 13:42] LABS: N. gonorrhoeae,PCR Negative (Negative)
[2023-10-18 13:50] LABS: C. trachomatis,PCR Negative (Negative)
== END 2023-10-17 16:02 | disposition home or self-care (01) ==
LOC: EC 13:44
DX: R10.31 Right lower quadrant pain (principal); Z20.2 Contact with and (suspected) exposure to infections with a predominantly sexual mode of transmission; J44.9 Chronic obstructive pulmonary disease, unspecified; I48.91 Unspecified atrial fibrillation; K21.9 Gastro-esophageal reflux disease without esophagitis; F41.9 Anxiety disorder, unspecified; F17.200 Nicotine dependence, unspecified, uncomplicated; F12.90 Cannabis use, unspecified, uncomplicated; Z79.899 Other long term (current) drug therapy; Z86.16 Personal history of COVID-19
CPT/HCPCS: 36415; 80053; 82150; 83605; 83690; 85027; 81001; 87491; 87591; 87661; 74177; 99284; 96374; 96375 ×4; 96361; 99406; J2060; J2405; J0696; J1885; J1170; Q9967

== ENCOUNTER 2023-10-30 17:56 | Emergency (ER) | payer BC ==
--- NOTE | 2023-10-30 18:04 | ED ---
General Adult HPI - General Stated complaint: Chest Pain - History of Present Illness Initial comments: Dictation was produced using [employer] dictation software. please excuse any gramm atical, word or spelling errors. Chief Complaint: 48-year-old female presents to the emergency department with tacky dysrhythmia History of Present Illness: Patient is a 48-year-old female she called EMS for dizziness. Patient has a history of tacky dysrhythmia that she has not follow- up with cardiology yet. According to EMS they arrived on scene put her on the monitor she was found to have a heart rate in measuring 220. Seemed regular and EMS provided patient with adenosine. She got 12 mg of adenosine second attempt with conversion to normal sinus rhythm.She had a similar episode 4 weeks ago. Today she was working on her taxes when she stood up started to have some chest pain and palpitations. States that it felt exactly like what happened 4 weeks ago. 1 year ago she had another event. She has not follow-up with cardiology as she was instructed to do. The ROS documented in this emergency department record has been reviewed and confirmed by me. Those systems with pertinent positive or negative responses have been documented in the HPI. All other systems are other negative and/or noncontributory. - Related Data Home Medications Medication Instructions Recorded Confirmed Famotidine 40 mg PO HS 07/20/14 06/12/22 QUEtiapine [SEROquel] 200 mg PO HS 03/16/17 06/12/22 Albuterol Inhaler [Ventolin Hfa 2 puff INHALATION Q6H PRN 06/10/22 06/12/22 Inhaler] Albuterol Nebulizer(Dose Unknw 1 applicate IH DIRECTED PRN 06/10/22 06/12/22 Ibuprofen [Motrin Ib] 200 mg PO Q8H PRN 06/10/22 06/12/22 Omeprazole [PriLOSEC] 40 mg PO HS 06/10/22 06/12/22 Sucralfate [Carafate] 1 gm PO DIRECTED PRN 06/10/22 06/12/22 Previous Rx's Medication Instructions Recorded Ibuprofen [Motrin] 600 mg PO Q8HR PRN #30 tab 03/11/23 Doxycycline [Vibramycin] 100 mg PO BID #28 capsule 10/17/23 metroNIDAZOLE [Flagyl] 500 mg PO BID 14 Days #28 tab 10/17/23 Metoprolol Tartrate [Lopressor] 50 mg PO BID 7 Days #14 tab 10/30/23 Allergies Allergy/AdvReac Type Severity Reaction Status Date / Time No Known Allergies Allergy Verified 10/02/23 15:17 Review of Systems ROS Statement: Those systems with pertinent positive or pertinent negative responses have been documented in the HPI. ROS Other: All systems not noted in ROS Statement are negative. 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 History of Any Multi-Drug Resistant Organisms: None Reported Past Surgical History: Back Surgery, Orthopedic Surgery, Tonsillectomy, Tubal Ligation Additional Past Surgical History / Comment(s): "precancerous polyps" removed from esophagus and stomach x2, back surgery for ruptured disk sx, EGD, rt ring ringer tendon repaired Past Anesthesia/Blood Transfusion Reactions: No Reported Reaction Past Psychological History: Anxiety Smoking Status: Current every day smoker Past Alcohol Use History: None Reported Past Drug Use History: Marijuana - Past Family History Mother Family Medical History: Cancer Additional Family Medical History / Comment(s): breast Sister(s) Family Medical History: Deep Vein Thrombosis (DVT), Pulmonary Embolus General Exam - General Exam Comments Initial Comments: PHYSICAL EXAM: General Impression: Alert and oriented x3, not in acute distress HEENT: Normocephalic atraumatic, extra-ocular movements intact, pupils equal and reactive to light bilaterally, mucous membranes moist. Cardiovascular: Heart regular rate and rhythm Chest: Able to complete full sentences, no retractions, no tachypnea Abdomen: abdomen soft, non-tender, non-distended, no organomegaly Musculoskeletal: Pulses present and equal in all extremities, no peripheral edema Motor: no focal deficits noted Neurological: CN II-XII grossly intact, no focal motor or sensory deficits noted Skin: Intact with no visualized rashes Psych: Normal affect and mood Course Vital Signs 10/30/23 10/30/23 10/30/23 17:57 18:07 18:10 Temperature 96.8 F L Pulse Rate 124 H 109 H Pulse Rate [ 124 H Market Development Executive ] Respiratory 18 18 Rate Blood Pressure 122/96 O2 Sat by Pulse 96 97 Oximetry EKG Findings - EKG Comments: EKG Findings:: My EKG interpretation: Ventricular rate 110, sinus tachycardia, parable 136, QRS 89, QTc 430. No KS prolongation, no QTC prolongation, no ST or T-wave changes noted. Overall, this EKG is unremarkable Medical Decision Making - Medical Decision Making Was pt. sent in by a medical professional or institution (, DANISH, CENTRAL SUPPLY CLERK, urgent care, hospital, or fdc...) When possible be specific @ -No Did you speak to anyone other than the patient for history (EMS, parent, family, police, friend...)? What history was obtained from this source @ -EMS as described above Did you review nursing and triage notes (agree or disagree)? Why? @ -I reviewed and agree with nursing and triage notes Were old charts reviewed (outside hosp., previous admission, EMS record, old EKG, old radiological studies, urgent care reports/EKG's, fdc records)? Report findings @ -EMS EKGs reviewed showing narrow complex tachydysrhythmia consistent with S VT Differential Diagnosis (chest pain, altered mental status, abdominal pain women, abdominal pain men, vaginal bleeding, musculoskeletal, weakness, fever, dyspnea, syncope, headache, dizziness, GI bleed, back pain, seizure, CVA, palpatations, mental health)? @ - Differential Palpitations: Ventricular arrhythmias, atrial arrhythmias, myocardial infarction, anemia, thyrotoxicosis, electrolyte imbalance, hypokalemia, pulmonary embolism, pulmonary disease, drugs, alcohol, anxiety, stress.... This is not meant to be an all-inclusive list. EKG interpreted by me (3pts min.). @ -See above X-rays interpreted by me (1pt min.). @ -None done CT interpreted by me (1pt min.). @ -None done U/S interpreted by me (1pt. min.). @ -None done What testing was considered but not performed or refused? (CT, X-rays, U/S, labs)? Why? @ -None What meds were considered but not given or refused? Why? @ -None Did you discuss the management of the patient with other professionals (professionals i.e. , DANISH, CENTRAL SUPPLY CLERK, lab, RT, psych nurse, social media assistant, biology internship, teacher, drug abuse resistance education officer, case management associate)? Give summary @ -No Was smoking cessation discussed for >3mins.? @ -No Was critical care preformed (if so, how long)? @ -No Were there social determinants of health that impacted care today? How? (Homelessness, low income, unemployed, alcoholism, drug addiction, transportation, low edu. Level, literacy, decrease access to med. care, [facility], rehab)? @ -No Was there de-escalation of care discussed even if they declined (Discuss DNR or withdrawal of care, Hospice)? DNR status @ -No What co-morbidities impacted this encounter? (DM, HTN, Smoking, COPD, CAD, Cancer, CVA, ARF, Chemo, Hep., AIDS, mental health diagnosis, sleep apnea, morbid obesity)? @ -None Was patient admitted / discharged? Hospital course, mention meds given and route, prescriptions, significant lab abnormalities, going to OR and other pertinent info. @ -48-year-old female presents to the emergency department with tacky dysrhythm ia treated by EMS. EMS EKGs suggest SVT. She is given 12 mg of adenosine with successful Cardioversion. Vital signs upon arrival are within acceptable limits. Laboratory evaluation is unremarkable. Patient given dose of metoprolol. Disposition options were discussed. She is agreeable discharge follow-up closely with cardiology. Patient given a 1 week prescription of metoprolol 50 mg twice daily for rate control. Patient agreeable with plan. Patient discharged Undiagnosed new problem with uncertain prognosis? @ -No Drug Therapy requiring intensive monitoring for toxicity (Heparin, Nitro, Insulin, Cardizem)? @ -No Were any procedures done? @ -No Diagnosis/symptom? Acute, or Chronic, or Acute on Chronic? Uncomplicated (without systemic symptoms) or Complicated (systemic symptoms)? @ -SVT Side effects of treatment? @ -No Exacerbation, Progression, or Severe Exacerbation? @ -No Poses a threat to life or bodily function? How? (Chest pain, [place], [place], pneumonia, PE, COPD, DKA, ARF, appy, cholecystitis, CVA, Diverticulitis, Homicidal, Suicidal, threat to staff... and all critical care pts) @ -Yes - Lab Data Result diagrams: 10/30/23 18:12 10/30/23 18:12 Lab Results 10/30/23 10/30/23 10/30/23 Range/Units 18:12 18:12 18:12 WBC 15.6 H (3.8-10.6) k/uL RBC 4.74 (3.80-5.40) m/uL Hgb 15.6 (11.4-16.0) gm/dL Hct 47.7 H (34.0-46.0) % MCV 100.6 H (80.0-100.0) fL MCH 33.0 (25.0-35.0) pg MCHC 32.8 (31.0-37.0) g/dL RDW 12.9 (11.5-15.5) % Plt Count 303 (150-450) k/uL MPV 8.3 Neutrophils % 68 % Lymphocytes % 20 % Monocytes % 8 % Eosinophils % 3 % Basophils % 1 % Neutrophils # 10.5 H (1.3-7.7) k/uL Lymphocytes # 3.1 (1.0-4.8) k/uL Monocytes # 1.2 H (0-1.0) k/uL Eosinophils # 0.4 (0-0.7) k/uL Basophils # 0.1 (0-0.2) k/uL Sodium 142 (137-145) mmol/L Potassium 4.3 (3.5-5.1) mmol/L Chloride 111 H (98-107) mmol/L Carbon Dioxide 21 L (22-30) mmol/L Anion Gap 10 mmol/L BUN 13 (7-17) mg/dL Creatinine 0.50 L (0.52-1.04) mg/dL Est GFR (CKD-EPI)AfAm >90 (>60 ml/min/1.73 sqM) Est GFR (CKD-EPI)NonAf >90 (>60 ml/min/1.73 sqM) Glucose 98 (74-99) mg/dL Calcium 9.7 (8.4-10.2) mg/dL Troponin I <0.012 (0.000-0.034) ng/mL Disposition Clinical Impression: SVT (supraventricular tachycardia) Disposition: HOME SELF-CARE Condition: Fair Instructions (If sedation given, give patient instructions): Supraventricular Tachycardia (ED) Prescriptions: Metoprolol Tartrate [Lopressor] 50 mg PO BID 7 Days #14 tab Is patient prescribed a controlled substance at d/c from ED?: No Referrals: Emir Lim MD [Medical Doctor] - 1-2 days Time of Disposition: 19:08
[2023-10-30 18:14] VITALS: RESP 18; TEMP 96.8
[2023-10-30 18:26] LABS: Basophils # (A) 0.1 k/uL (0-0.2); Basophils % (A) 1 %; Eosinophils # (A) 0.4 k/uL (0-0.7); Eosinophils % (A) 3 %; HCT 47.7 % (34.0-46.0); HGB 15.6 gm/dL (11.4-16.0); Lymphocytes # (A) 3.1 k/uL (1.0-4.8); Lymphocytes % (A) 20 %; MCHC 32.8 g/dL (31.0-37.0); MCV 100.6 fL (80.0-100.0); Mean Platelet Volume 8.3; Monocytes # (A) 1.2 k/uL (0-1.0); Monocytes % (A) 8 %; Neutrophils # (A) 10.5 k/uL (1.3-7.7); Neutrophils % (A) 68 %; Platelet Count 303 k/uL (150-450); RBC 4.74 m/uL (3.80-5.40); RDW 12.9 % (11.5-15.5); WBC 15.6 k/uL (3.8-10.6)
[2023-10-30 18:36] LABS: African American GFR (CKD) >90 (>60 ml/min/1.73 sqM); Anion Gap 10 mmol/L; Blood Urea Nitrogen 13 mg/dL (7-17); Calcium 9.7 mg/dL (8.4-10.2); Carbon Dioxide 21 mmol/L (22-30); Chloride 111 mmol/L (98-107); Glucose 98 mg/dL (74-99); Non-African American GFR(CKD) >90 (>60 ml/min/1.73 sqM); Potassium 4.3 mmol/L (3.5-5.1); Sodium 142 mmol/L (137-145)
[2023-10-30] MEDS: ALPRAZolam 0.5 MG TAB PO STA (18:38)
[2023-10-30] MEDS: METOPROLOL TARTRATE 50 MG TAB PO STA (19:02)
[2023-10-30 19:38] VITALS: BP 107/73; PULSE 101
== END 2023-10-30 19:32 | disposition home or self-care (01) ==
LOC: EC 17:56
DX: I47.10 Supraventricular tachycardia, unspecified (principal); K21.9 Gastro-esophageal reflux disease without esophagitis; I48.91 Unspecified atrial fibrillation; J44.9 Chronic obstructive pulmonary disease, unspecified; F41.9 Anxiety disorder, unspecified; F17.200 Nicotine dependence, unspecified, uncomplicated; F12.90 Cannabis use, unspecified, uncomplicated; Z79.899 Other long term (current) drug therapy; Z86.16 Personal history of COVID-19
CPT/HCPCS: 36415; 80048; 84484; 85025; 93005; 99285